=== PATIENT | female | born 1945 | race Caucasian/White ===

== ENCOUNTER 2016-09-03 14:56 | Observation (INO) | payer OTHER ==
[~2016-09-03] VITALS: Ht 160 cm; Wt 68.0 kg
[~2016-09-03 14:56] MED LIST: ASPI81TA82 PO; ATOR20TA PO; CLON.2 PO; DOXA1 PO; FLUO10TA PO; FURO80 PO; GLIM4TAB PO; HYDR12.56 PO; LACTCAP7 PO; LEVO88TA2 PO; METO50TA PO; OCUV PO; SODI650T PO; VITA200017 PO
[2016-09-03 14:57] VITALS: BP 138/65; PULSE 94; RESP 20; TEMP 97.9; O2SAT 97
[2016-09-03 15:52] VITALS: BP 170/74; PULSE 67; RESP 20; O2SAT 93
[2016-09-03] MEDS ORDERED: METO50TA PO (15:57)
[2016-09-03] MEDS ORDERED: NOVORP2 SQ (15:57)
[2016-09-03] MEDS ORDERED: NOVONP2 SQ (15:57)
[2016-09-03] MEDS ORDERED: CLON0.2T PO (15:57)
[2016-09-03] MEDS ORDERED: DOXA4TAB3 PO (15:57)
[2016-09-03] MEDS ORDERED: FURO80TA PO (15:57)
[2016-09-03] MEDS ORDERED: BRIL90TA PO (15:57)
[2016-09-03] MEDS ORDERED: SEVEL800 PO (15:57)
[2016-09-03] MEDS ORDERED: ATOR20TA15 PO (15:57)
[2016-09-03] MEDS ORDERED: LEVO100T5 PO (15:57)
[2016-09-03] MEDS ORDERED: GLIM4TAB PO (15:57)
[2016-09-03] MEDS ORDERED: SODIUM CHLORID 0.9% 500 ML INJ 500 ML IV ONE (16:00)
[2016-09-03] MEDS ORDERED: SODIUM CHLORIDE 0.9% FLUSH 5 ML FLUSH IVF PRN (16:00)
[2016-09-03] MEDS ORDERED: ONDANSETRON HCL 4 MG/2 ML VIAL IVP ONE (16:00)
--- NOTE | 2016-09-03 16:27 | PD ---
HPI Chief Complaint: General Weakness Time Seen by Provider: 16:05 Travel History International Travel<30 days: No Contact w/Intl Traveler<30days: No Traveled to known affect area: No History of Present Illness HPI 71-year-old female with history of insulin-dependent diabetes, end-stage renal disease on peritoneal dialysis presents with nausea and vomiting. Symptoms started 1 week ago. She reports multiple episodes of emesis on a daily basis, generalized weakness, lightheadedness. She reports she has not been checking her blood sugar and has not been taking insulin because she has not been eating much. She does endorse cough and congestion since last week which is improving. She denies fevers or chills, flank pain, dysuria, chest pain or shortness of breath, abdominal pain, diarrhea. She has no other complaints at this time. PFSH Past Medical History Cancer: No Cardiovascular Problems: No Diabetes: Yes Patient Takes Glucophage: No Dialysis: Yes (peritoneal) Diminished Hearing: No Endocrine: Yes Genitourinary: Yes (KIDNEY FAILURE) Hepatitis: No Hiatal Hernia: No Hypertension: Yes Immune Disorder: No Medical other: Yes (ANEMIA) Musculoskeletal: No Neurologic: Yes (NEUROPATHY FEET) Psychiatric: Yes (DEPRESSION (LOST SON LAST MO.)) Reproductive: No Respiratory: No Thyroid Disease: Yes Past Surgical History Abdominal Surgery: No AICD: No Cardiac Surgery: No Coronary Stent: Yes Ear Surgery: No Endocrine Surgery: No Eye Surgery: Yes (IRINA. CATARACT EXTR.) Genitourinary Surgery: No Gynecologic Surgery: No Joint Replacement: No Oral Surgery: Yes (TONSILLECTOMY; DENTAL EXTRACT.) Pacemaker: No Thoracic Surgery: No Social History Alcohol Use: No Tobacco Use: No Substance Use: No Allergies-Medications (Allergen,Severity, Reaction): Coded Allergies: Amlodipine (Verified Allergy, Severe, 09/03/16) ALLERGY Enalapril (Verified Allergy, Severe, 09/03/16) ALLERGY Metformin (Verified Allergy, Severe, 09/03/16) ALLERGY Reported Meds & Prescriptions Reported Meds & Active Scripts Active Reported Furosemide 80 Mg Tab 80 Mg PO BID Metoprolol Tartrate 50 Mg Tab 50 Mg PO BID Levothyroxine (Levothyroxine Sodium) 100 Mcg Tab 100 Mcg PO DAILY Glimepiride 4 Mg Tab 8 Mg PO DAILY Take with breakfast or first main meal Doxazosin (Doxazosin Mesylate) 4 Mg Tab 4 Mg PO DAILY Atorvastatin (Atorvastatin Calcium) 20 Mg Tab 20 Mg PO HS Renvela (Sevelamer Carbonate) 800 Mg Tab 800 Mg PO TID Novolin N Inj (Insulin Human NPH) 1,000 Unit/10 Ml Vial 0 SQ DIRECTED Sliding Scale As Directed. Novolin R Inj (Insulin Human Regular) 1,000 Unit/10 Ml Vial 0 SQ DIRECTED Sliding Scale As Directed. Brilinta (Ticagrelor) 90 Mg Tab 90 Mg PO BID Review of Systems Except as stated in HPI: all other systems reviewed are Neg Physical Exam Narrative GENERAL: Well-developed well-nourished female in no acute distress SKIN: Warm and dry. HEAD: Atraumatic. Normocephalic. EYES: Pupils equal and round. No scleral icterus. No injection or drainage. ENT: No nasal bleeding or discharge. Mucous membranes pink and moist. NECK: Trachea midline. No JVD. CARDIOVASCULAR: Regular rate and rhythm. No murmur appreciated. RESPIRATORY: No accessory muscle use. Clear to auscultation. Breath sounds equal bilaterally. GASTROINTESTINAL: Abdomen soft, non-tender, nondistended. Hepatic and splenic margins not palpable. MUSCULOSKELETAL: No obvious deformities. No clubbing. No cyanosis. No edema. NEUROLOGICAL: Awake and alert. No obvious cranial nerve deficits. Motor grossly within normal limits. Normal speech. Data Data Last Documented VS Vital Signs Date Time Temp Pulse Resp B/P Pulse Ox O2 Delivery O2 Flow Rate FiO2 09/03/16 19:23 19 97 Room Air 09/03/16 19:22 83 150/67 09/03/16 14:57 97.9 Orders Electrocardiogram (09/03/16 ) Complete Blood Count With Diff (09/03/16 15:55) Comprehensive Metabolic Panel (09/03/16 15:55) Urinalysis - C+S If Indicated (09/03/16 15:55) Lipase (09/03/16 15:55) Iv Access Insert/Monitor (09/03/16 15:55) Ecg Monitoring (09/03/16 15:55) Oximetry (09/03/16 15:55) Ondansetron Inj (Zofran Inj) (09/03/16 16:00) Sodium Chloride 0.9% Flush (Ns Flush) (09/03/16 16:00) Beta Hydroxybutyrate (Acetone) (09/03/16 15:55) Chest, Single Ap (09/03/16 ) Magnesium (Mg) (09/03/16 15:55) Sodium Chlorid 0.9% 500 Ml Inj (Ns 500 M (09/03/16 16:00) Us Abdomen Gallbladder (09/03/16 ) Urine Culture (09/03/16 17:49) Piperacil-Tazo 3.375 Gm Premix (Zosyn 3. (09/03/16 19:15) Consult General Surgery (09/03/16 ) Labs Laboratory Tests Test 09/03/16 09/03/16 16:15 17:49 White Blood Count 11.6 TH/MM3 Red Blood Count 4.27 MIL/MM3 Hemoglobin 11.2 GM/DL Hematocrit 34.8 % Mean Corpuscular Volume 81.5 FL Mean Corpuscular Hemoglobin 26.3 PG Mean Corpuscular Hemoglobin 32.3 % Concent Red Cell Distribution Width 16.2 % Platelet Count 205 TH/MM3 Mean Platelet Volume 8.9 FL Neutrophils (%) (Auto) 78.7 % Lymphocytes (%) (Auto) 13.8 % Monocytes (%) (Auto) 7.0 % Eosinophils (%) (Auto) 0.1 % Basophils (%) (Auto) 0.4 % Neutrophils # (Auto) 9.1 TH/MM3 Lymphocytes # (Auto) 1.6 TH/MM3 Monocytes # (Auto) 0.8 TH/MM3 Eosinophils # (Auto) 0.0 TH/MM3 Basophils # (Auto) 0.0 TH/MM3 CBC Comment DIFF FINAL Differential Comment Sodium Level 131 MEQ/L Potassium Level 3.4 MEQ/L Chloride Level 88 MEQ/L Carbon Dioxide Level 28.1 MEQ/L Anion Gap 15 MEQ/L Blood Urea Nitrogen 72 MG/DL Creatinine 6.00 MG/DL Estimat Glomerular Filtration 7 ML/MIN Rate Random Glucose 303 MG/DL Calcium Level 8.6 MG/DL Magnesium Level 2.1 MG/DL Total Bilirubin 0.4 MG/DL Aspartate Amino Transf 11 U/L (AST/SGOT) Alanine Aminotransferase 18 U/L (ALT/SGPT) Alkaline Phosphatase 101 U/L Total Protein 7.6 GM/DL Albumin 3.3 GM/DL Lipase 692 U/L B-Hydroxybutyrate 0.20 MMOL/L Urine Color YELLOW Urine Turbidity CLOUDY Urine pH 5.5 Urine Specific [place] 1.025 Urine Protein 100 mg/dL Urine Glucose (UA) 300 mg/dL Urine Ketones NEG mg/dL Urine Occult Blood SMALL Urine Nitrite NEG Urine Bilirubin NEG Urine Urobilinogen LESS THAN 2.0 MG/DL Urine Leukocyte Esterase LARGE Urine RBC 21 /hpf Urine WBC /hpf Urine WBC Clumps MANY Urine Squamous Epithelial 4 /hpf Cells Urine Bacteria MANY /hpf Microscopic Urinalysis Comment CULTURE INDICATED MDM Medical Decision Making Medical Screen Exam Complete: Yes Emergency Medical Condition: Yes Medical Record Reviewed: Yes Interpretation(s) EKG sinus rhythm with occasional PVCs, QTC 565 CBC WBC 11.6, hemoglobin 11.2 otherwise unremarkable CMP Lipase Differential Diagnosis Gastroenteritis, dehydration, DKA, electrolyte abnormality, sepsis, obstruction , cholecystitis Narrative Course 71-year-old female with history of end-stage renal disease, diabetes presents with one week of nausea and vomiting with multiple episodes of emesis on daily basis. She has not been taking insulin this past week or checking her blood sugar secondary to generalized weakness, decreased appetite. Plan is for basic lab work, chest x-ray, EKG, right upper quadrant ultrasound. Discussed with my attending who is agreeable with plan of care. The patient's laboratory imaging studies been reviewed. She does have cholelithiasis with some pericolic cystic fluid. Her lipase is elevated at 692. Therefore IV Zosyn will be initiated and the case was discussed the case with the on-call general surgeon Dr. Quezada who will come and evaluate the patient. The patient will be admitted for observation to the hospitalist service with consultation to general surgeon. The patient is agreeable. Procedures EKG Prior to Arrival: Yes Diagnosis Primary Impression: Nausea and vomiting Qualified Code: R11.2 - Non-intractable vomiting with nausea, unspecified vomiting type Additional Impressions: Pancreatitis Qualified Code: K85.90 - Acute pancreatitis, unspecified complication status, unspecified pancreatitis type Cholelithiasis Qualified Code: K80.20 - Calculus of gallbladder without cholecystitis without obstruction Prolonged QT interval Admitting Information Admitting Physician Requests: Observation Master Concepcion Sep 03, 2016 16:27
[2016-09-03 16:33] LABS: AUTOMATED NEUTROPHIL # 9.1 TH/MM3 (1.8-7.7); BASOPHIL % 0.4 % (0.0-2.0); EOSINOPHIL % 0.1 % (0.0-4.0); HEMATOCRIT 34.8 % (35.0-46.0); HEMO FLAGS DIFF FINAL; LYMPH % 13.8 % (9.0-44.0); LYMPHOCYTE # 1.6 TH/MM3 (1.0-4.8); MEAN CELL VOLUME 81.5 FL (80.0-100.0); MEAN CORPUSCULAR HEMOGLOBIN 26.3 PG (27.0-34.0); MEAN CORPUSCULAR HGB CONC 32.3 % (32.0-36.0); NEUT % 78.7 % (16.0-70.0); PLATELET COUNT 205 TH/MM3 (150-450); RED BLOOD COUNT 4.27 MIL/MM3 (4.00-5.30); RED CELL DISTRIBUTION WIDTH 16.2 % (11.6-17.2); WHITE BLOOD COUNT 11.6 TH/MM3 (4.0-11.0)
--- NOTE | 2016-09-03 17:12 | RADRPT ---
EXAM DATE/TIME: 09/03/2016 16:06 [facility] COMPARISON: No previous studies available for comparison. INDICATIONS : Cough MEDICAL HISTORY : Hypertension. Diabetes mellitus type II. Renal failure, chronic. Dialysis, Flu symptoms. SURGICAL HISTORY : Coronary artery stent. ENCOUNTER: Initial ACUITY: 2 weeks PAIN SCORE: 0/10 LOCATION: chest FINDINGS: Single AP view of the chest. The lungs are clear. Cardiomediastinal silhouette within normal limits. No evidence of pleural effusion or pneumothorax. CONCLUSION: No acute cardiopulmonary disease identified. Philip Auguste MD on September 03, 2016 at 17:10 Board Certified Radiologist. This report was verified electronically.
[2016-09-03 17:27] LABS: ALT (GPT) 18 U/L (10-53); ANION GAP 15 MEQ/L (5-15); AST (GOT) 11 U/L (15-37); BICARBONATE 28.1 MEQ/L (21.0-32.0); BLOOD UREA NITROGEN 72 MG/DL (7-18); CHLORIDE 88 MEQ/L (98-107); GLOMERULAR FILTRATION RATE 7 ML/MIN (>89); MAGNESIUM 2.1 MG/DL (1.5-2.5); POTASSIUM 3.4 MEQ/L (3.5-5.1); SODIUM (NA) 131 MEQ/L (136-145)
[2016-09-03 17:29] LABS: ALKALINE PHOSPHATASE 101 U/L (45-117); TOTAL BILIRUBIN ADULT 0.4 MG/DL (0.2-1.0)
[2016-09-03 18:00] VITALS: BP 159/66; PULSE 88; RESP 20; O2SAT 96
[2016-09-03 18:29] LABS: BACTERIA, URINE MANY /hpf; BLOOD, URINE SMALL (NEG); COMMENT (UR) CULTURE INDICATED; CULTURE IF INDICATED CULTURE INDICATED; GLUCOSE,URINE 300 mg/dL (NEG); KETONE, URINE NEG (NEG); NITRITE,URINE NEG (NEG); PH, URINE 5.5 (5.0-8.5); SQUAMOUS EPITHELIAL CELL URINE 4 /hpf (0-5); URINE COLOR YELLOW (YELLW/STRAW)
--- NOTE | 2016-09-03 18:30 | RADRPT ---
EXAM DATE/TIME: 09/03/2016 17:21 [facility] COMPARISON: No previous studies available for comparison. INDICATIONS : Nausea and vomiting. MEDICAL HISTORY : Hypertension. Thyroid disease. Bilateral macular degeneration. Neuropathy. Renal failure. Periton eal dialysis. Diabetes. Depression. Anemia. SURGICAL HISTORY : Tonsillectomy. Coronary artery stent. Bilateral cataract removal. ENCOUNTER: Initial ACUITY: 1 week PAIN SCORE: 0/10 LOCATION: Right upper quadrant MEASUREMENTS: LIVER: 16.8 cm length COMMON DUCT: 5 mm RIGHT KIDNEY: 11.0 x 4.7 x 5.2 cm FINDINGS: The liver is slightly echogenic which maybe due to fatty infiltration and or hepatocellular dysfuncti on. The gallbladder demonstrates septations within it with gallstones without gallbladder wall thicke sri, however slight pericholecystic fluid is seen with slight fluid in the perihepatic space. The v isualized head of the pancreas, and right kidney appear grossly intact for technique. CONCLUSION: 1. Cholelithiasis. 2. Slight fluid in the perihepatic and pericholecystic space. 3. The liver is slightly echogenic which maybe due to fatty infiltration and or hepatocellular dysfun hetalion. K. Christopher Vidales MD on September 03, 2016 at 18:26 Board Certified Radiologist. This report was verified electronically.
[2016-09-03] MEDS ORDERED: PIPERACIL-TAZO 3.375 GM PREMIX 50 ML IV ONE (19:15)
[2016-09-03 19:22] VITALS: BP 150/67; PULSE 83; RESP 19; O2SAT 98
--- NOTE | 2016-09-03 19:42 | HHI.HP ---
[facility] No Primary Care Physician Admission Diagnosis acute nausea and vomiting, pancreatitis,cholelithiasis, prolonged QT Diagnoses: (1) Pancreatitis Diagnosis: Principal (2) Cholelithiasis Diagnosis: Principal (3) Hypokalemia Diagnosis: Principal (4) Prolonged QT interval Diagnosis: Principal (5) UTI (urinary tract infection) Diagnosis: Principal (6) ESRD on peritoneal dialysis Diagnosis: Principal (7) DM (diabetes mellitus) Diagnosis: Principal Travel History International Travel<30 Days: No Contact w/Intl Traveler <30 Da: No Traveled to Known Affected Are: No History of Present Illness This is a 71-year-old female with a PMH of HTN, DM and ESRD on PD who presented to the ER w/ nausea, vomiting and decreased PO intake. Per pt and Daughter, symptoms have been ongoing "since Eric" but have gotten progressively worse in the last 1wk. Reports approx 20-30 episodes of non-bloody emesis daily , denies diarrhea, fever or chills. States unable to take medications and stopped using Insulin x3 wks as not eating. Denies association w/ meals. No abdominal pain. On arrival, BP 138/65, HR 94, O2 sat 97% on RA, Afebrile. WBC 11.6. K+ 3.4. Creatinine 6.00. Lipase 692. EKG w/ prolonged QT interval. U/ a w/ UTI. S/p Zofran in ER, nausea/vomiting resolved. Gallbladder US w/ cholelithiasis, slight fluid and perihepatic and pericholecystic space. Dr. Quezada consulted by ER physician, will evaluate in a.m. CXR with no acute findings. S/p Zosyn in ER. Review of Systems Other ROS: 14 point review of systems otherwise negative. Past Family Social History Past Medical History PMH: HTN, DM and ESRD on PD Past Surgical History PAST SURGICAL HISTORY: Bilateral Cataract Surgery, Tonsillectomy, Cardiac Stent Allergies: Coded Allergies: Amlodipine (Verified Allergy, Severe, 09/03/16) ALLERGY Enalapril (Verified Allergy, Severe, 09/03/16) ALLERGY Metformin (Verified Allergy, Severe, 09/03/16) ALLERGY Family History PAST FAMILY HISTORY: Reviewed, positive for DM. Social History PAST SOCIAL HISTORY: Negative for alcohol, tobacco or drugs. Physical Exam Vital Signs Vital Signs Date Time Temp Pulse Resp B/P Pulse Ox O2 Delivery O2 Flow Rate FiO2 09/03/16 19:23 19 97 Room Air 09/03/16 19:22 83 19 150/67 98 Room Air 09/03/16 18:00 88 20 159/66 96 Room Air 09/03/16 15:52 67 20 170/74 93 Room Air 09/03/16 14:57 97.9 94 20 138/65 97 Room Air Physical Exam PE: GENERAL: Pleasant middle-aged white female in no acute distress. Daughter at bedside. HEENT: PERRLA, EOMI. No scleral icterus or conjunctival pallor. No lid lag or facial droop. CARDIOVASCULAR: Regular rate and rhythm. No obvious murmurs to auscultation. No chest tenderness to palpation. RESPIRATORY: No obvious rhonchi or wheezing. Clear to auscultation. Breath sounds equal bilaterally. GASTROINTESTINAL: Abdomen soft, non-tender, nondistended. BS normal. MUSCULOSKELETAL: Extremities without clubbing, cyanosis, or edema. No obvious deformities. NEUROLOGICAL: Awake, alert and oriented x4. No focal neurologic deficits. Moving both upper and lower extremities spontaneously. Laboratory Laboratory Tests Test 09/03/16 09/03/16 16:15 17:49 White Blood Count 11.6 Red Blood Count 4.27 Hemoglobin 11.2 Hematocrit 34.8 Mean Corpuscular Volume 81.5 Mean Corpuscular Hemoglobin 26.3 Mean Corpuscular Hemoglobin 32.3 Concent Red Cell Distribution Width 16.2 Platelet Count 205 Mean Platelet Volume 8.9 Neutrophils (%) (Auto) 78.7 Lymphocytes (%) (Auto) 13.8 Monocytes (%) (Auto) 7.0 Eosinophils (%) (Auto) 0.1 Basophils (%) (Auto) 0.4 Neutrophils # (Auto) 9.1 Lymphocytes # (Auto) 1.6 Monocytes # (Auto) 0.8 Eosinophils # (Auto) 0.0 Basophils # (Auto) 0.0 CBC Comment DIFF FINAL Differential Comment Sodium Level 131 Potassium Level 3.4 Chloride Level 88 Carbon Dioxide Level 28.1 Anion Gap 15 Blood Urea Nitrogen 72 Creatinine 6.00 Estimat Glomerular Filtration 7 Rate Random Glucose 303 Calcium Level 8.6 Magnesium Level 2.1 Total Bilirubin 0.4 Aspartate Amino Transf 11 (AST/SGOT) Alanine Aminotransferase 18 (ALT/SGPT) Alkaline Phosphatase 101 Total Protein 7.6 Albumin 3.3 Lipase 692 B-Hydroxybutyrate 0.20 Urine Color YELLOW Urine Turbidity CLOUDY Urine pH 5.5 Urine Specific [place] 1.025 Urine Protein 100 Urine Glucose (UA) 300 Urine Ketones NEG Urine Occult Blood SMALL Urine Nitrite NEG Urine Bilirubin NEG Urine Urobilinogen LESS THAN 2.0 Urine Leukocyte Esterase LARGE Urine RBC 21 Urine WBC Urine WBC Clumps MANY Urine Squamous Epithelial 4 Cells Urine Bacteria MANY Microscopic Urinalysis Comment CULTURE INDICATED Date/Time Procedure Status Source Growth 09/03/16 17:49 Urine Culture Received Urine Clean Catch Pending Result Diagram: 09/03/16 1615 09/03/16 1615 Assessment and Plan Problem List: (1) Pancreatitis ICD Code: K85.90 Status: Acute (2) Hypokalemia ICD Code: E87.6 Status: Acute (3) Cholelithiasis ICD Code: K80.20 Status: Acute (4) Prolonged QT interval ICD Code: R94.31 Status: Acute (5) UTI (urinary tract infection) ICD Code: N39.0 Status: Acute (6) ESRD on peritoneal dialysis ICD Code: N18.6 Status: Acute (7) DM (diabetes mellitus) ICD Code: E11.9 Status: Acute Assessment and Plan A/P: 1. Pancreatitis: Lipase 692, c/o nausea/vomiting, no abdominal pain. Diet as tolerated, IVF-caution w/ ESRD, repeat Lipase in am. Analgesics/antiemetics as needed. Check Lipid Profile, TSH, Hgb A1c. 2. Cholelithiasis: Gallbladder US w/ cholelithiasis and slight fluid in perihepatic and pericholecystic space, images reviewed by me, concern for possible early cholecystitis. Dr. Quezada consulted by ER physician, will evaluate in am. S/p Zosyn in ER, will continue w/ IV Abx. 3. UTI: U/a w/ UTI, continue w/ IV Abx. Follow up Urine Culture. 4. ESRD on PD: Follows w/ Dr. Prescott as outpatient, will consult to resume PD. 5. Prolonged QT Interval: EKG w/ QTC 565. Hold Metoprolol, replace K+, avoid Zofran. Repeat EKG 6. DM: Sliding scale w/ Accu-Cheks, Check Hgb A1c. 7. DVT Prophylaxis: SCD/Teds. 8. Social work for d/c planning as needed. 9. Case discussed w/ ER physician at length. Alcira Zamorano MD Sep 03, 2016 19:42
[2016-09-03] MEDS ORDERED: BISACODYL 10 MG SUPP PR PRN (19:45)
[2016-09-03] MEDS ORDERED: ONDANSETRON HCL 4 MG/2 ML VIAL IVP PRN (19:45)
[2016-09-03] MEDS ORDERED: PROMETHAZINE INJ 25 MG/ML VIAL IM PRN (19:45)
[2016-09-03] MEDS ORDERED: SODIUM CHLORIDE 0.9% FLUSH 5 ML FLUSH FLUSH PRN (19:45)
[2016-09-03] MEDS ORDERED: GLUCAGON 1 MG/ML VIAL OTHER PRN (19:45)
[2016-09-03] MEDS ORDERED: ACETAMINOPHEN 325 MG TAB PO PRN (19:45)
[2016-09-03] MEDS ORDERED: POTASSIUM CHLORIDE 20 MEQ CONTROLLED RELEASE TAB PO ONE (19:45)
[2016-09-03] MEDS ORDERED: ACETAMINOPHEN/HYDROcodone 325 MG/5 MG TAB PO PRN (19:45)
[2016-09-03] MEDS ORDERED: MORPHINE SULFATE 4 MG/ML INJ IV PRN (19:45)
[2016-09-03] MEDS ORDERED: DEXTROSE 50% IN WATER 50 ML VIAL(D50) IV PUSH PRN (19:45)
[2016-09-03] MEDS ORDERED: METOPROLOL TARTRATE 50 MG TAB PO SCH (21:00)
[2016-09-03 21:41] VITALS: BP 143/64; PULSE 84; RESP 16; TEMP 98.8; O2SAT 94
[2016-09-03] MEDS: SODIUM CHLORIDE 0.9% FLUSH 5 ML FLUSH FLUSH SCH (22:04)
[2016-09-03] MEDS: INSULIN ASPART SUPPLEMENTAL SCALE SQ SCH (22:04)
[2016-09-03] MEDS: FUROSEMIDE 80 MG TAB PO SCH (22:04)
[2016-09-04] VITALS (7 sets, daily range): BP systolic 114–133; BP diastolic 55–63; PULSE 67–85; RESP 16–22; TEMP 96.8–98.7; O2SAT 90–94
[2016-09-04] MEDS: PIPERACIL-TAZO 2.25 GM PREMIX 50 ML IV SCH ×4 (01:48→18:10)
[2016-09-04 05:46] LABS: BASOPHIL % 0.2 % (0.0-2.0); EOSINOPHIL # 0.1 TH/MM3 (0-0.4); EOSINOPHIL % 0.6 % (0.0-4.0); HEMATOCRIT 33.2 % (35.0-46.0); HEMO FLAGS DIFF FINAL; LYMPH % 12.2 % (9.0-44.0); LYMPHOCYTE # 1.5 TH/MM3 (1.0-4.8); MEAN CELL VOLUME 82.4 FL (80.0-100.0); MEAN CORPUSCULAR HEMOGLOBIN 26.3 PG (27.0-34.0); MEAN CORPUSCULAR HGB CONC 31.9 % (32.0-36.0); MONO % 7.4 % (0.0-8.0); NEUT % 79.6 % (16.0-70.0); PLATELET COUNT 152 TH/MM3 (150-450); RED BLOOD COUNT 4.03 MIL/MM3 (4.00-5.30); RED CELL DISTRIBUTION WIDTH 15.7 % (11.6-17.2); WHITE BLOOD COUNT 12.6 TH/MM3 (4.0-11.0)
[2016-09-04 06:09] LABS: ALT (GPT) 16 U/L (10-53); ANION GAP 14 MEQ/L (5-15); AST (GOT) 15 U/L (15-37); BICARBONATE 24.2 MEQ/L (21.0-32.0); BLOOD UREA NITROGEN 72 MG/DL (7-18); CHLORIDE 93 MEQ/L (98-107); GLOMERULAR FILTRATION RATE 7 ML/MIN (>89); POTASSIUM 4.4 MEQ/L (3.5-5.1); SODIUM (NA) 131 MEQ/L (136-145)
[2016-09-04 06:19] LABS: ALKALINE PHOSPHATASE 86 U/L (45-117); HDL CHOLESTEROL 25.9 MG/DL (40.0-60.0); TOTAL BILIRUBIN ADULT 0.6 MG/DL (0.2-1.0)
[2016-09-04] MEDS: LEVOTHYROXINE SODIUM 100 MCG TAB PO SCH (07:21)
[2016-09-04] MEDS: INSULIN ASPART SUPPLEMENTAL SCALE SQ SCH ×4 (07:22→22:03)
[2016-09-04] MEDS: SEVELAMER CARBONATE 800 MG TAB PO SCH ×3 (08:27→17:47)
[2016-09-04] MEDS: FUROSEMIDE 80 MG TAB PO SCH ×2 (08:28→21:51)
[2016-09-04] MEDS: DOXAZOSIN MESYLATE 4 MG TAB PO SCH (08:28)
[2016-09-04] MEDS: SODIUM CHLORIDE 0.9% FLUSH 5 ML FLUSH FLUSH SCH ×2 (08:28→21:51)
--- NOTE | 2016-09-04 09:08 | HHI.PR ---
Subjective Remarks Follow up for intractable nausea and vomiting. Patient states that she isn't present nausea and vomiting 1 week. Denies ever having any abdominal pain. Normal bowel movements. She states that she had some broth yesterday, which was the person she is tolerated in a week. She states she was told she had gallstones before. No history of pancreatitis. She would like to try to eat something more than broth today. Objective Vitals Vital Signs Date Time Temp Pulse Resp B/P Pulse Ox O2 Delivery O2 Flow Rate FiO2 09/04/16 08:09 98.4 84 20 127/60 90 09/04/16 04:10 98.4 67 16 133/60 94 09/04/16 00:05 98.7 85 20 133/63 91 09/03/16 21:41 98.8 84 16 143/64 94 09/03/16 19:23 19 97 Room Air 09/03/16 19:22 83 19 150/67 98 Room Air 09/03/16 18:00 88 20 159/66 96 Room Air 09/03/16 15:52 67 20 170/74 93 Room Air 09/03/16 14:57 97.9 94 20 138/65 97 Room Air I/O 09/03/16 09/03/16 09/03/16 09/04/16 09/04/16 09/04/16 07:00 15:00 23:00 07:00 15:00 23:00 Intake Total 80 ml Output Total 1 ml 250 ml Balance 79 ml -250 ml Intake Oral 80 ml Output Urine Total 1 ml 250 ml # Voids 1 1 Result Diagram: 09/04/16 0503 09/04/16 0503 Imaging Last Impressions Gall Bladder Ultrasound 09/03/16 0000 Signed Impressions: Service Date/Time: Saturday, September 03, 2016 17:21 - CONCLUSION: 1. Cholelithiasis. 2. Slight fluid in the perihepatic and pericholecystic space. 3. The liver is slightly echogenic which maybe due to fatty infiltration and or hepatocellular dysfunction. Felicia Vidales MD Chest X-Ray 09/03/16 0000 Signed Impressions: Service Date/Time: Saturday, September 03, 2016 16:06 - CONCLUSION: No acute cardiopulmonary disease identified. Philip Auguste MD Objective Remarks GENERAL: Well-developed well-nourished. In no acute distress. SKIN: Warm and dry. No lesions noted. HEENT: Normocephalic. Pupils equal and round. Mucous membranes pink and moist. CARDIOVASCULAR: Regular rate and rhythm. No murmur appreciated. RESPIRATORY: No accessory muscle use. Clear to auscultation. Breath sounds equal bilaterally. GASTROINTESTINAL: Abdomen soft, non-tender, nondistended. Bowel sounds x4. PD catheter in place in RUQ. MUSCULOSKELETAL: No obvious deformities. No clubbing or cyanosis. Trace edema. NEUROLOGICAL: Awake and alert. No focal neurological deficits. Moves upper and lower extremities spontaneously. Normal speech. PSYCHIATRIC: Appropriate mood and affect; insight and judgment normal. A/P Problem List: (1) Pancreatitis ICD Code: K85.90 Status: Acute (2) Hypokalemia ICD Code: E87.6 Status: Acute (3) Cholelithiasis ICD Code: K80.20 Status: Acute (4) Prolonged QT interval ICD Code: R94.31 Status: Acute (5) UTI (urinary tract infection) ICD Code: N39.0 Status: Acute (6) ESRD on peritoneal dialysis ICD Code: N18.6 Status: Acute (7) DM (diabetes mellitus) ICD Code: E11.9 Status: Acute Assessment and Plan 71-year-old female with a PMH of HTN, DM and ESRD on PD who presented w/ nausea , vomiting and decreased PO intake Pancreatitis: Lipase 692, c/o nausea/vomiting, no abdominal pain. Possibly secondary to retching versus gallstones, see below. Advance diet as tolerated, full liquids for now. Cautious IV hydration. Repeat lipase improving. Triglycerides 476. Analgesics/antiemetics as needed. Cholelithiasis: Gallbladder US w/ cholelithiasis and slight fluid in perihepatic and pericholecystic space. General surgery consulted, discussed with Dr. Quezada, will check MRCP. Continue IV Zosyn for now. UTI: U/a w/ evidence of UTI. Could definitely contribute to nausea and vomiting. Continue IV Zosyn as above. Follow up Urine Culture. ESRD on PD: Follows w/ Dr. Prescott as outpatient, consulted to resume PD. Prolonged QT Interval: EKG w/ QTC 565. Hold Metoprolol, replaced K+, avoid Zofran. Repeat EKG DM: Not well controlled with nausea and vomiting. Sliding scale w/ Accu-Cheks. Hemoglobin A1c pending. Resume home long-acting insulin when after tolerating diet. CAD: Brilinta on hold for now pending possible gallbladder intervention with general surgery. Continue statin and metoprolol. Hypothyroidism: TSH slightly elevated at 4.25. Free T4 within normal limits. Continue home levothyroxine. Repeat thyroid function tests in 4-6 weeks as outpatient. DVT Prophylaxis: SCD/Teds. Plan of care discussed with Dr. Jackson. Discharge Planning Disposition pending clinical course. Alexis Benítez Sep 04, 2016 09:08
[2016-09-04] MEDS ORDERED: SODIUM CHLORID 0.9% 500 ML INJ 500 ML IV SCH (10:00)
[2016-09-04 10:05] LABS: FREE T4 1.24 NG/DL (0.76-1.46)
[2016-09-04] MEDS ORDERED: HEPARIN SODIUM - IV 10,000 UNITS/10 ML VIAL XX PRN (10:15)
[2016-09-04] MEDS ORDERED: SODIUM CHLORIDE 0.9% FLUSH 5 ML FLUSH IVF PRN (10:15)
[2016-09-04] MEDS ORDERED: SINCALIDE 5 MCG/5 ML VIAL IV ONE (15:03)
--- NOTE | 2016-09-04 17:27 | RADRPT ---
EXAM DATE/TIME: 09/04/2016 13:38 [facility] COMPARISON: No previous studies available for comparison. INDICATIONS : Abdominal pain with nausea and vomiting. Pancreatitis and cholelithiasis. DOSE: 4.3 mCi Tc99m Mebrofenin IV MEDICATION: 1.3 mcg Cholecystokinin IV; No symptomatic response. Cholecystokinin was administered by slow infusion over 8 minutes beginning at 60 minutes. MEDICAL HISTORY : Hypertension. Diabetes mellitus type 2. Renal disease, end stage. SURGICAL HISTORY : Tonsillectomy. Coronary artery stent. Cataracts. ENCOUNTER: Initial ACUITY: 1 day PAIN SCALE: 3/10 LOCATION: Right upper quadrant TECHNIQUE: Following the intravenous administration of radiotracer, dynamic sequential image were performed with continuous acquisition. Time-activity curves were generated. FINDINGS: HEPATIIC KINETICS: There is prompt uptake of radiotracer in the liver. No focal defects are seen. There is normal rate of washout from the hepatic parenchyma. BILIARY CLEARANCE: Activity is first seen in the extrahepatic biliary system at 15 minutes. There is normal excretion i nto the small bowel. GALLBLADDER: Activity is first seen in the gallbladder at 10 minutes. POST CHOLECYSTOKININ: After Cholecystokinin administration, there is no significant gallbladder contractile response. Commo n bile duct kinetics are normal and there is no evidence of biliary obstruction. BILIARY ENTERIC REFLUX: None observed. CLINICAL: The patient was asymptomatic after Cholecystokinin administration. CONCLUSION: 1. No evidence for biliary ductal obstruction. Normal uptake and excretion by the liver. No gallbladd er contractile response to CCK which may indicate biliary dyskinesia. Rolan Mcmanus MD on September 04, 2016 at 17:24 Board Certified Radiologist. This report was verified electronically.
[2016-09-04 18:24] LABS: PERITONEAL HISTIOCYTES 26 %; PERITONEAL LYMPHS 19 %; PERITONEAL MONOS 30 %; PERITONEAL POLYS(SEGS) 25 %; PERITONEAL WBC 405 /MM3 (0-10)
--- NOTE | 2016-09-04 20:42 | MB ---
cc: JANETH THOMAS MD DATE OF CONSULTATION: 09/04/2016 REASON FOR CONSULTATION: Rule out cholecystitis. HISTORY OF PRESENT ILLNESS: The patient is a 71-year-old female with multiple medical issues who presented with multiple episodes of nausea, vomiting and decreased p.o. intake. The patient states she has had a long bout of this, approximately since it started. She had multiple episodes, about twenty to thirty episodes, of nonbloody vomit and states it was self-limiting. She had recurrent episodes starting around Tuesday and it continued to get worse with multiple repeat episodes of nausea, vomiting and poor p.o. intake. Therefore decision was made to come to the emergency department for further workup and evaluation. She had labs with a WBC of 1.6. She is at end-stage renal disease with a creatinine 6 and lipase of 692. She had a further workup including a gallbladder ultrasound which showed of gallstones and some fluid around the gallbladder as well. General surgery was consulted for further evaluation. On my exam, the patient is resting, comfortably. Her abdomen is relatively benign. She denies any such abdominal pain or pain with eating or significant pain on palpation. She does have a peritoneal dialysis catheter in place. She further denies diarrhea, constipation, fevers or chills. PAST MEDICAL HISTORY: 1. Hypertension. 2. Diabetes. 3. End-stage renal disease. 4. Peritoneal dialysis catheter. PAST SURGICAL HISTORY: 1. Bilateral cataract surgery. 2. Tonsillectomy. 3. Cardiac stents. 4. PD catheter. ALLERGIES: 1. AMLODIPINE. 2. ENALAPRIL. 3. METFORMIN. MEDICATIONS: See the electronic medical record. FAMILY HISTORY: Positive for diabetes in mother. SOCIAL HISTORY: The patient denies ethyl alcohol, IV drug abuse or smoking. REVIEW OF SYSTEMS: CONSTITUTIONAL: The patient denies fevers or chills. HEAD, EYES, EARS, NOSE, THROAT: Denies scleral icterus or eye pain. CARDIOVASCULAR: Denies palpitations or chest pain. RESPIRATORY: Denies wheeze or cough. ABDOMEN: Denies pain. Complains of nausea and vomiting. MUSCULOSKELETAL: Denies arthralgias, myalgias. NEUROLOGIC: Denies numbness or tingling. : Denies dysuria or hematuria. ENDOCRINE: Complains of diabetes. Denies polyuria or polydipsia. PHYSICAL EXAMINATION: GENERAL: The patient IN no acute distress. VITAL SIGNS: Temperature 98.4, pulse 67, blood pressure 133/60, respirations 16, 94% on room air. HEAD, EYES, EARS, NOSE, THROAT: Pupils equal, round and reactive to light and accommodation. Pupils equal and reactive. No scleral icterus. NECK: The neck is supple. No adenopathy. LUNGS: Clear to auscultation bilaterally. Bilateral expansion. HEART: S1-S2 regular rhythm. ABDOMEN: The abdomen is soft, nontender and nondistended. PD catheter in place. Well-healed incisions. EXTREMITIES: Moving all extremities. Warm. Well-perfused. NEUROLOGIC: 5/5 motor strength. A GCS of 15. Alert and oriented times four. PSYCHIATRIC: Good mood. No change in sensorium. LABORATORY AND DIAGNOSTIC DATA: WBCs 12.6, hemoglobin 10.6, hematocrit 33.2, platelet count 152,000. Sodium 131, potassium 4.4, BUN 72, creatinine 7. Hemoglobin A1c pending. Glucose 138, previously 3. AST 15, ALT 16, alkaline phosphatase 86, albumin 2.6, lipase is 692. T4 124. Ultrasound reviewed by myself showing gallbladder with gallbladder stones and pericystic fluid. ASSESSMENT: Patient with multiple medical issues including end-stage renal disease, PD catheter, diabetes, pancreatitis, cholelithiasis, low evidence of cholecystitis. ASSESSMENT AND PLAN: After full radiologic, clinical and laboratory workup, the patient with above-named issue including nausea, vomiting, multiple episodes for a prolonged period time. Also the patient has gallstones. At this point, I have a low suspicion of gallbladder pathology or dysfunction. The patient does have cholelithiasis but is having no pain on palpation or any pain associated with food. The patient does have significant decreased p.o. intake and multiple episodes of nausea and vomiting. Concern more likely related to comorbidities such as diabetes, possible gastroparesis. Recommend further workup including upper GI or a feeding study. The patient have elements of pancreatitis contributing to the nausea and vomiting. Continue to give the patient IV fluids, bowel rest initially and trend pancreatic labs. The patient did have hyperglycemia upon admission. Recommend Accu-Cheks and insulin scale. Medicine to manage. We will obtain a HIDA scan to evaluate the gallbladder and its function. Again, low threshold for any gallbladder pathology or need for surgical intervention at this time. We will continue to follow and observe and follow up on radiologic studies. MD MAXINE Benson/TAURUS /7:56 PM /8:28 PM
--- NOTE | 2016-09-04 21:02 | MB ---
cc: YASMIN TREVIZO MD DATE OF CONSULTATION 09/04/16 REASON FOR CONSULTATION End-stage renal disease management. HISTORY OF PRESENT ILLNESS A 71-year-old female with a history of ESRD on peritoneal dialysis. The patient has been on PD for approximately two years. She follows up with Dr. Truman Trevizo and with Dr. Duarte as an outpatient. The patient presented to the emergency room on September 03 with presentation of decreased p.o. intake with nausea and vomiting. Apparently, patient has had decreased by mouth intake for several months which had progressively gotten worse over a week prior to admission with multiple episodes of emesis daily. The patient reported that she was unable to take her medications and then stop taking her insulin for several weeks. She started feeling more apathetic about her overall medical state. She apparently had an A1c of 11 as an outpatient prior to her admission here. When the patient presented here, she was found to have a prolonged QT interval on her EKG and her potassium was 3.4. Her potassium was replaced and this did improve. She also was found to have an elevated lipase level at 692 and was assessed with pancreatitis. The patient was initially n.p.o. and was given IV fluids with her initial presentation. A gallbladder ultrasound revealed signs of cholelithiasis and surgery was consulted. A HIDA scan initially was relatively negative otherwise and there is possible plans for a MRCP evaluation. The patient was empirically started on antibiotics with Zosyn. Her urinalysis also revealed signs of a UTI and she has also been continued with Zosyn for that. Overnight, her repeat lipase levels were somewhat improved and diet was then increased to full liquid diet. The patient at this point reports she is not feeling much better since her admission. She has some ongoing generalized weakness. However, no other acute complaints. Regarding her peritoneal dialysis, apparently her peritoneal dialysis has been uneventful and has been going well at home. She has had some mild ulcerations and crusting near her exit site which she reports has been stable for several weeks now. Her PD fluid has been clear and she has had no abdominal pains otherwise. Nephrology was consulted for further evaluation. REVIEW OF SYSTEMS The patient reports nausea and vomiting with decreased p.o. intake for several weeks. No diarrhea. No dysuria. No chest pains. No shortness of breath. However, has had generalized malaise. No dizziness or loss of consciousness. However, has had decreased p.o. intake. Otherwise, review of systems negative. PAST MEDICAL HISTORY 1. Hypertension, 2. Diabetes 3. ESRD on peritoneal dialysis followed up with Dr. Duarte and with Dr. Truman Trevizo. PAST SURGICAL HISTORY 1. Bilateral cataract surgery, 2. Tonsillectomy 3. Cardiac stents. ALLERGIES AMLODIPINE ENALAPRIL METFORMIN FAMILY HISTORY Diabetes. SOCIAL HISTORY No alcohol, tobacco or drug use. VITAL SIGNS: At time of evaluation temperature 98.1, pulse 79, respiratory rate 22, blood pressure 114/55 with 93% pulse ox PHYSICAL EXAMINATION GENERAL: Awake, alert, oriented, no apparent distress. HEENT: Neck soft supple. CARDIAC: Regular rate and rhythm. PULMONARY: Lungs clear auscultation bilaterally. ABDOMEN: Soft, nondistended, nontender. EXTREMITIES: No edema. LABORATORY FINDINGS White count 12.6, hemoglobin 10.6, hematocrit 33.2 with platelet count 152. Sodium 131, potassium 4.4, chloride 93, bicarb 24.2, BUN 72, creatinine 6.08 with glucose of 138, A1c level is pending. However, reportedly outpatient A1c was 11, AST 15, ALT 16, alk phos 86, albumin 2.6. Triglycerides 476, lipase trending down from 692 down to 500. ASSESSMENT/PLAN 1. ESRD on PD. Patient has been continued on peritoneal dialysis tonight and she is tolerating PD well this evening. We will continue with 2.5% Dianeal solution and continue to monitor. PD fluid culture was ordered and she does have an elevated white cell count in her PD fluid of 400, howeever, only 25% neutrophils were noted. She is tolerating the PD without any pain and her fluid is clear at this point. We will check PD fluid culture, however, no suspicion for any peritonitis at this point. Of note, she does have some increased crusting and early ulceration near the exit site of her catheter. She is on IV antibiotics with Zosyn and this should cover any possible pathogens here. In addition, we will give topical antibiotic ointment to this site to be given with nursing care. This does not appear to be a tunnel infection, otherwise, however just some mild crusting at the exit site. We will continue to closely monitor. The patient is afebrile at this point and continue to follow up PD fluid cultures. 2. Pancreatitis. The patient presented with decreased p.o. intake and elevated lipase levels. Lipase level has somewhat trended down from 692 down to 500. She has a decreased p.o. intake and fluids were stopped today and she was started on p.o. intake with a clear liquid diet. She is empirically being covered with Zosyn at this point. Initial gallbladder ultrasound revealed signs of possible cholelithiasis, however, HIDA scan was negative. Plan is for an MRCP to further evaluate for any gallstone pancreatitis. Continue follow up with surgery. Of note, should abdominal surgery be necessary, the patient may need transition to hemodialysis. However, continue conservative management and for now and continue with PD as tolerated at this point. 3. Prolonged QT interval. The patient presented with a prolonged QT interval. Her beta mray was held and she was given potassium. Her potassium improved from 3.4-4.4 now. Continue to monitor. Her magnesium levels were within normal limits. Much of this may be secondary to malnutrition with decreased p.o. intake. Continue to monitor. 4. Urinary tract infection. The patient had a urine culture suggestive of gram-negative rods. She is on Zosyn at this point. Continue to monitor and follow speciation of urine culture. She is afebrile at this point. 5. Diabetes. The patient reportedly had been noncompliant with her insulin. She apparently has an A1c of 11 as an outpatient. Repeat testing is being done at this point. Continue with insulin sliding scale. Her glucose was 138 this morning. However, it was 303 yesterday. MD JANNETH Calle/ /8:04 PM /8:34 PM СЕРГЕЙ
[2016-09-04] MEDS: ATORVASTATIN 20 MG TAB PO SCH (21:52)
[2016-09-04] MEDS: MUPIROCIN 2% CREAM 15 GM TOPICAL SCH (22:54)
[2016-09-05] MEDS: PIPERACIL-TAZO 2.25 GM PREMIX 50 ML IV SCH ×4 (02:05→21:32)
[2016-09-05 05:14] LABS: AUTOMATED NEUTROPHIL # 6.2 TH/MM3 (1.8-7.7); BASOPHIL % 0.5 % (0.0-2.0); EOSINOPHIL # 0.2 TH/MM3 (0-0.4); EOSINOPHIL % 2.2 % (0.0-4.0); HEMATOCRIT 28.7 % (35.0-46.0); HEMO FLAGS DIFF FINAL; LYMPH % 16.3 % (9.0-44.0); LYMPHOCYTE # 1.4 TH/MM3 (1.0-4.8); MEAN CELL VOLUME 80.8 FL (80.0-100.0); MEAN CORPUSCULAR HGB CONC 33.4 % (32.0-36.0); MONO % 7.1 % (0.0-8.0); NEUT % 73.9 % (16.0-70.0); PLATELET COUNT 122 TH/MM3 (150-450); RED BLOOD COUNT 3.55 MIL/MM3 (4.00-5.30); RED CELL DISTRIBUTION WIDTH 15.7 % (11.6-17.2); WHITE BLOOD COUNT 8.3 TH/MM3 (4.0-11.0)
[2016-09-05] MEDS: LEVOTHYROXINE SODIUM 100 MCG TAB PO SCH (05:43)
[2016-09-05 06:25] VITALS: BP 124/60; PULSE 77; RESP 18; TEMP 97.3; O2SAT 92
[2016-09-05] MEDS: INSULIN ASPART SUPPLEMENTAL SCALE SQ SCH ×4 (06:29→21:33)
--- NOTE | 2016-09-05 07:30 | HHI.PR ---
Subjective Subjective Notes no acute issues, denies pain, no vomiting overnight, patent gallbladder on hida Objective Vitals/I&O Vital Signs Date Time Temp Pulse Resp B/P Pulse Ox O2 Delivery O2 Flow Rate FiO2 09/05/16 06:25 97.3 77 18 124/60 92 09/03/16 19:23 Room Air Labs Laboratory Tests Test 09/04/16 09/05/16 17:35 04:40 Peritoneal Fluid WBC 405 Peritoneal Fluid RBC 58 Peritoneal Fluid Neutrophils 25 Peritoneal Fluid Lymphocytes 19 Peritoneal Fluid Monocytes 30 Peritoneal Fluid Histiocytes 26 White Blood Count 8.3 Red Blood Count 3.55 Hemoglobin 9.6 Hematocrit 28.7 Mean Corpuscular Volume 80.8 Mean Corpuscular Hemoglobin 27.0 Mean Corpuscular Hemoglobin 33.4 Concent Red Cell Distribution Width 15.7 Platelet Count 122 Mean Platelet Volume 8.8 Neutrophils (%) (Auto) 73.9 Lymphocytes (%) (Auto) 16.3 Monocytes (%) (Auto) 7.1 Eosinophils (%) (Auto) 2.2 Basophils (%) (Auto) 0.5 Neutrophils # (Auto) 6.2 Lymphocytes # (Auto) 1.4 Monocytes # (Auto) 0.6 Eosinophils # (Auto) 0.2 Basophils # (Auto) 0.0 CBC Comment DIFF FINAL Differential Comment Date/Time Procedure Status Source Growth 09/04/16 17:35 Gram Stain Received Fluid Peritoneal Fluid Pending 09/04/16 17:35 Body Fluid Culture Received Fluid Peritoneal Fluid Pending 09/03/16 17:49 Urine Culture - Preliminary Resulted Urine Clean Catch Gram Negative Denys Cardiovascular: Regular Lungs: Clear Abdomen: Non-distended, Non-tender A/P Assessment and Plan multiple medical issues, nausea vomiting, pancreatitis, +UTI - better currently , labs pending, HIDA patent gallbladder -no clinical evidence of biliary dyskinesia, or acute cholelithiasis PLAN Ok for diet abx for uti trend lipase medical mgnt per primary team non operative management at this time will follow Alexsander Thorpe MD Sep 05, 2016 07:30
[2016-09-05 08:37] VITALS: BP 127/59; PULSE 83; RESP 20; TEMP 98; O2SAT 92
[2016-09-05] MEDS: FUROSEMIDE 80 MG TAB PO SCH ×2 (09:32→21:32)
[2016-09-05] MEDS: DOXAZOSIN MESYLATE 4 MG TAB PO SCH (09:32)
[2016-09-05] MEDS: SODIUM CHLORIDE 0.9% FLUSH 5 ML FLUSH FLUSH SCH ×2 (09:32→21:00)
[2016-09-05] MEDS: SEVELAMER CARBONATE 800 MG TAB PO SCH ×4 (09:32→18:46)
[2016-09-05] MEDS: MUPIROCIN 2% CREAM 15 GM TOPICAL SCH ×2 (09:32→21:32)
[2016-09-05 09:37] LABS: HEMOGLOBIN A1a 1.5 %; HEMOGLOBIN A1b 3.8 %; HEMOGLOBIN Ao 74.9 %; HEMOGLOBIN LA1C 2.4 %; HEMOGLOBIN P3 7.7 %
--- NOTE | 2016-09-05 11:50 | HHI.PR ---
Subjective Remarks Follow-up for intractable nausea and vomiting. The patient tolerated full liquids yesterday, with no further nausea and vomiting overnight, but did have one episode of vomiting and diarrhea this morning. She denies any chest pain, shortness breath, abdominal pain. Objective Vitals Vital Signs Date Time Temp Pulse Resp B/P Pulse Ox O2 Delivery O2 Flow Rate FiO2 09/05/16 08:37 98.0 83 20 127/59 92 09/05/16 06:25 97.3 77 18 124/60 92 09/04/16 23:15 97.1 83 20 122/60 93 09/04/16 20:47 96.8 85 18 131/62 93 09/04/16 15:39 98.1 79 22 114/55 93 09/04/16 12:32 97.6 80 22 125/58 94 I/O 09/04/16 09/04/16 09/04/16 09/05/16 09/05/16 09/05/16 07:00 15:00 23:00 07:00 15:00 23:00 Intake Total 80 ml Output Total 1 ml 250 ml 922 ml Balance 79 ml -250 ml -922 ml Intake Oral 80 ml Output Urine Total 1 ml 250 ml Peritoneal Fluid 922 ml # Voids 1 Result Diagram: 09/05/16 0440 09/04/16 0503 Imaging Last Impressions Hepatobiliary Scan Nuclear Medicine 09/04/16 0000 Signed Impressions: Service Date/Time: Sunday, September 04, 2016 13:38 - CONCLUSION: 1. No evidence for biliary ductal obstruction. Normal uptake and excretion by the liver. No gallbladder contractile response to CCK which may indicate biliary dyskinesia. Rolan Mcmanus MD Gall Bladder Ultrasound 09/03/16 0000 Signed Impressions: Service Date/Time: Saturday, September 03, 2016 17:21 - CONCLUSION: 1. Cholelithiasis. 2. Slight fluid in the perihepatic and pericholecystic space. 3. The liver is slightly echogenic which maybe due to fatty infiltration and or hepatocellular dysfunction. Felicia Vidales MD Chest X-Ray 09/03/16 0000 Signed Impressions: Service Date/Time: Saturday, September 03, 2016 16:06 - CONCLUSION: No acute cardiopulmonary disease identified. Philip Auguste MD Objective Remarks GENERAL: Well-developed well-nourished. In no acute distress. SKIN: Warm and dry. No lesions noted. HEENT: Normocephalic. Pupils equal and round. Mucous membranes pink and moist. CARDIOVASCULAR: Regular rate and rhythm. No murmur appreciated. RESPIRATORY: No accessory muscle use. Clear to auscultation. Breath sounds equal bilaterally. GASTROINTESTINAL: Abdomen soft, non-tender, nondistended. Bowel sounds x4. PD catheter in place in RUQ. MUSCULOSKELETAL: No obvious deformities. No clubbing or cyanosis. Trace edema. NEUROLOGICAL: Awake and alert. No focal neurological deficits. Moves upper and lower extremities spontaneously. Normal speech. PSYCHIATRIC: Appropriate mood and affect; insight and judgment normal. A/P Problem List: (1) Pancreatitis ICD Code: K85.90 Status: Acute (2) Hypokalemia ICD Code: E87.6 Status: Acute (3) Cholelithiasis ICD Code: K80.20 Status: Acute (4) Prolonged QT interval ICD Code: R94.31 Status: Acute (5) UTI (urinary tract infection) ICD Code: N39.0 Status: Acute (6) ESRD on peritoneal dialysis ICD Code: N18.6 Status: Acute (7) DM (diabetes mellitus) ICD Code: E11.9 Status: Acute Assessment and Plan 71-year-old female with a PMH of HTN, DM and ESRD on PD who presented w/ nausea , vomiting and decreased PO intake Intractable nausea and vomiting: Possibly secondary to pancreatitis vs cholelithiasis vs UTI vs peritonitis. Leukocytosis has improved. Afebrile. Peritoneal fluid with elevated WBC, although doubt peritonitis, follow-up culture. Treating UTI. Antiemetics as needed. Advance diet as tolerated. Pancreatitis: Lipase 692, c/o nausea/vomiting, no abdominal pain. Possibly secondary to retching. Cautious IV hydration. Repeat lipase improving. Triglycerides 476. Cholelithiasis: Gallbladder US w/ cholelithiasis and slight fluid in perihepatic and pericholecystic space. General surgery consulted, ordered a HIDA scan which was unremarkable, discussed with Dr. Quezada, no plans for surgery. Continue IV Zosyn for now. UTI: U/a w/ evidence of UTI. Could definitely contribute to nausea and vomiting. Continue IV Zosyn as above. Follow up Urine Culture. ESRD on PD: Follows w/ Dr. Prescott as outpatient, consulted to resume PD. Prolonged QT Interval: EKG w/ QTC 565. Hold Metoprolol, replaced K+, avoid Zofran. Repeat EKG shows QTC within normal limits. DM: Uncontrolled. Sliding scale w/ Accu-Cheks. Hemoglobin A1c 11. Resume home long-acting insulin when tolerating diet. CAD: Brilinta was on hold for possible procedure, we'll resume. Continue statin and metoprolol. Hypothyroidism: TSH slightly elevated at 4.25. Free T4 within normal limits. Continue home levothyroxine. Repeat thyroid function tests in 4-6 weeks as outpatient. DVT Prophylaxis: SCD/Teds. Written by Alexis Benítez, acting as scribe for Dr. Jackson on 09/05/16 at 11:42. Discharge Planning Disposition pending clinical course. Attending Statement The documentation accurately reflects the work performed [id number] by me on at 11:42. Problem Qualifiers (1) Pancreatitis: (2) UTI (urinary tract infection): Qualified Code: N39.0 - Urinary tract infection without hematuria, site unspecified (3) DM (diabetes mellitus): Alexis Benítez Sep 05, 2016 11:50 Romero Kelley MD Sep 12, 2016 09:00
[2016-09-05 12:01] VITALS: BP 141/64; PULSE 84; RESP 20; TEMP 98.2; O2SAT 92
--- NOTE | 2016-09-05 13:07 | EKG ---
Date Performed: 09/03/2016 Time Performed: 15:59:14 PTAGE: 71 years EKG: Sinus rhythm WITH FREQUENT VENTRICULAR PREMATURE COMPLEXES PATTERN CONSISTENT WITH PULMONARY DISEASE LEFT ANTERIO R FASCICULAR BLOCK MINIMAL VOLTAGE CRITERIA FOR LVH, CONSIDER NORMAL VARIANT MODERATE ST DEPRESSION P ROLONGED QT INTERVAL Since previous tracing, no significant change noted ABNORMAL ECG PREVIOUS TRACING : 12/03/2014 08.54 DOCTOR: Hanh Rollins Interpretating Date/Time 09/05/2016 13:06:18
--- NOTE | 2016-09-05 13:08 | EKG ---
Date Performed: 09/04/2016 Time Performed: 15:45:26 PTAGE: 71 years EKG: Sinus rhythm LEFT ANTERIOR FASCICULAR BLOCK POSSIBLE ANTERIOR MYOCARDIAL INFARCTION Since previous tracing, no si gnificant change noted ABNORMAL ECG PREVIOUS TRACING : 09/03/2016 15.59 DOCTOR: Hanh Rollins Interpretating Date/Time 09/05/2016 13:06:37
[2016-09-05 13:20] LABS: BICARBONATE 26.9 MEQ/L (21.0-32.0); POTASSIUM 3.3 MEQ/L (3.5-5.1)
[2016-09-05 13:33] LABS: CALCIUM-PROTEIN CORRECTED 7.6 MG/DL (8.5-10.1)
[2016-09-05 16:03] VITALS: BP 142/64; PULSE 81; RESP 20; TEMP 98.6; O2SAT 91
--- NOTE | 2016-09-05 16:18 | HHI.NPPN ---
Subjective Additional Remarks Ongoing nausea today Objective Data Data 09/04/16 09/05/16 19:00 07:00 Output Total 250 ml Balance -250 ml Output Urine Total 250 ml # Voids 1 Vital Signs Date Time Temp Pulse Resp B/P Pulse Ox O2 Delivery O2 Flow Rate FiO2 09/05/16 16:03 98.6 81 20 142/64 91 09/05/16 12:01 98.2 84 20 141/64 92 09/05/16 08:37 98.0 83 20 127/59 92 09/05/16 06:25 97.3 77 18 124/60 92 09/04/16 23:15 97.1 83 20 122/60 93 09/04/16 20:47 96.8 85 18 131/62 93 -: 09/05/16 0440 09/05/16 1208 Microbiology 09/04/16 Gram Stain - Final, Resulted 09/04/16 Body Fluid Culture - Preliminary, Resulted NO GROWTH IN 24 HOURS. 09/04/16 Gram Stain, Ordered Pending 09/04/16 Wound Culture, Ordered Pending Physical Exam General Appearance: Well Developed, Well Nourished, No Acute Distress Throat Throat Exam: Oral Mucosa [place] & Moist Neck Neck Exam: Neck Supple Pulmonary Resp Exam: Clear Bilaterally Cardiology CV Exam: Regular, Normal Sinus Rhythm Gastrointestinal/Abdomen GI Exam: Soft, Non-Tender, Bowel Sounds Present Integumentary Skin Exam: Dry, Intact Extremeties Extremities Exam: No Edema Neurologic Neuro Exam: Alert, Awake, Oriented, Speech Clear, Moving All Extremities Assessment/Plan Problem List: (1) ESRD on peritoneal dialysis Plan: Tolerated PD last night- continue with 2.5% Dianeal solution and continue to monitor. 922cc UF Negative PD fluid gram stain, no signs of peritonitis. She does have some increased crusting and early ulceration near the exit site of her catheter. She is on IV Zosyn and this should cover any possible pathogens here. Continue topical antibiotic ointment to this site. Continue PD (2) Pancreatitis Plan: The patient presented with decreased p.o. intake and elevated lipase levels. Lipase level has somewhat trended down from 692 down to 500. Tolerating some PO liquid diet at this time. She is empirically being covered with Zosyn at this point. Initial gallbladder ultrasound revealed signs of possible cholelithiasis, however, HIDA scan was negative. Continue follow up with surgery - no surgical intervention planned at this time. (3) DM (diabetes mellitus) Plan: The patient reportedly had been noncompliant with her insulin, with an A1c of 11. Continue insulin sliding scale, encouraged medical compliance. (4) Prolonged QT interval Plan: Initial prolonged QT. Will further replace potassium, follow up labs. (5) UTI (urinary tract infection) Plan: on Zosyn Problem Qualifiers (1) Pancreatitis: (2) DM (diabetes mellitus): (3) UTI (urinary tract infection): Qualified Code: N39.0 - Urinary tract infection without hematuria, site unspecified Pineda Prescott MD Sep 05, 2016 16:18
[2016-09-05] MEDS: POTASSIUM CHLOR 20 MEQ PREMIX 100 ML IV SCH ×2 (17:06→18:37)
[2016-09-05 20:58] VITALS: BP 155/75; PULSE 84; RESP 20; TEMP 97.4; O2SAT 93
[2016-09-05] MEDS: ATORVASTATIN 20 MG TAB PO SCH (21:32)
[2016-09-05] MEDS: TICAGRELOR 90 MG TAB PO SCH (21:32)
[2016-09-06 01:38] VITALS: BP 144/65; PULSE 89; RESP 18; TEMP 98.6; O2SAT 95
[2016-09-06] MEDS: PIPERACIL-TAZO 2.25 GM PREMIX 50 ML IV SCH ×3 (03:29→18:10)
[2016-09-06 05:29] LABS: AUTOMATED NEUTROPHIL # 6.1 TH/MM3 (1.8-7.7); BASOPHIL % 0.4 % (0.0-2.0); EOSINOPHIL # 0.2 TH/MM3 (0-0.4); EOSINOPHIL % 2.5 % (0.0-4.0); HEMATOCRIT 29.2 % (35.0-46.0); HEMO FLAGS DIFF FINAL; LYMPH % 15.9 % (9.0-44.0); LYMPHOCYTE # 1.3 TH/MM3 (1.0-4.8); MEAN CELL VOLUME 80.3 FL (80.0-100.0); MEAN CORPUSCULAR HEMOGLOBIN 26.6 PG (27.0-34.0); MONO % 7.1 % (0.0-8.0); NEUT % 74.1 % (16.0-70.0); PLATELET COUNT 132 TH/MM3 (150-450); RED BLOOD COUNT 3.63 MIL/MM3 (4.00-5.30); RED CELL DISTRIBUTION WIDTH 15.6 % (11.6-17.2); WHITE BLOOD COUNT 8.2 TH/MM3 (4.0-11.0)
[2016-09-06 05:57] VITALS: BP 121/65; PULSE 85; RESP 18; TEMP 98.4; O2SAT 95
[2016-09-06 06:02] LABS: BICARBONATE 25.4 MEQ/L (21.0-32.0); POTASSIUM 3.2 MEQ/L (3.5-5.1)
[2016-09-06] MEDS: INSULIN ASPART SUPPLEMENTAL SCALE SQ SCH ×4 (06:21→22:36)
[2016-09-06] MEDS: LEVOTHYROXINE SODIUM 100 MCG TAB PO SCH (06:21)
[2016-09-06 08:00] VITALS: BP 125/67; PULSE 79; RESP 20; TEMP 96.8; O2SAT 95
[2016-09-06] MEDS ORDERED: POTASSIUM CHLORIDE 20 MEQ CONTROLLED RELEASE TAB PO ONE (08:15)
--- NOTE | 2016-09-06 09:02 | HHI.PR ---
Subjective Remarks Follow up for intractable nausea/vomiting, pancreatitis. The patient reports no further nausea/vomiting overnight or today. She was able to tolerate regular diet. She had some diarrhea yesterday but none today. Denies any abdominal pain. Denies fevers or chills. She is ambulating without difficulty. She would like to go home today if possible. Discussed with RN. Objective Vitals Vital Signs Date Time Temp Pulse Resp B/P Pulse Ox O2 Delivery O2 Flow Rate FiO2 09/06/16 05:57 98.4 85 18 121/65 95 09/06/16 01:38 98.6 89 18 144/65 95 09/05/16 20:58 97.4 84 20 155/75 93 09/05/16 16:03 98.6 81 20 142/64 91 09/05/16 12:01 98.2 84 20 141/64 92 I/O 09/05/16 09/05/16 09/05/16 09/06/16 09/06/16 09/06/16 07:00 15:00 23:00 07:00 15:00 23:00 Intake Total 300 ml Output Total 922 ml 547 ml Balance -922 ml 300 ml -547 ml IV Total 300 ml Peritoneal Fluid 922 ml Hemodialysis 547 ml # Voids 3 # Bowel Movements 1 Result Diagram: 09/06/16 0453 09/06/16 0453 Imaging Last Impressions Hepatobiliary Scan Nuclear Medicine 09/04/16 0000 Signed Impressions: Service Date/Time: Sunday, September 04, 2016 13:38 - CONCLUSION: 1. No evidence for biliary ductal obstruction. Normal uptake and excretion by the liver. No gallbladder contractile response to CCK which may indicate biliary dyskinesia. Rolan Mcmanus MD Gall Bladder Ultrasound 09/03/16 0000 Signed Impressions: Service Date/Time: Saturday, September 03, 2016 17:21 - CONCLUSION: 1. Cholelithiasis. 2. Slight fluid in the perihepatic and pericholecystic space. 3. The liver is slightly echogenic which maybe due to fatty infiltration and or hepatocellular dysfunction. Felicia Vidales MD Chest X-Ray 09/03/16 0000 Signed Impressions: Service Date/Time: Saturday, September 03, 2016 16:06 - CONCLUSION: No acute cardiopulmonary disease identified. Philip Auguste MD Objective Remarks GENERAL: Well-nourished, well-developed elderly female patient in NAD. Ambulating her room. SKIN: Warm and dry. No rash. HEAD: Normocephalic. Atraumatic. EYES: Pupils equal and round. No scleral icterus. No injection or drainage. ENT: No nasal bleeding or discharge. Mucous membranes pink and moist. NECK: Supple. Trachea midline. CARDIOVASCULAR: Regular rate and rhythm. S1, S2 noted. No murmur appreciated. RESPIRATORY: No accessory muscle use. Clear to auscultation. Breath sounds equal bilaterally. GASTROINTESTINAL: Abdomen soft, non-tender, nondistended. Normoactive bowel sounds x4. PD catheter in place in RUQ. MUSCULOSKELETAL: No obvious deformities. Trace b/l lower extremity edema. NEUROLOGICAL: Awake and alert. No obvious cranial nerve deficits. Motor grossly within normal limits. Normal speech. PSYCHIATRIC: Appropriate mood and affect; insight and judgment normal. Medications and IVs Current Medications Medications (Trade) Dose Ordered Sig/[place] Route Start Time Stop Time Status Last Admin (Zosyn 2.25 Gm Premix) 50 ml @ 100 mls/hr Q6H IV 09/04/16 01:00 09/06/16 09:05 (D50w (Vial) Inj) 25 ml UNSCH PRN IV PUSH 09/03/16 19:45 (Glucagon Inj) 1 mg UNSCH PRN OTHER 09/03/16 19:45 (NS Flush) 2 ml UNSCH PRN FLUSH 09/03/16 19:45 (NS Flush) 2 ml BID FLUSH 09/03/16 21:00 09/06/16 09:05 (Dulcolax Supp) 10 mg DAILY PRN ME 09/03/16 19:45 (Tylenol) 650 mg Q6H PRN PO 09/03/16 19:45 ([place] 5-325 Mg) 1 tab Q4H PRN PO 09/03/16 19:45 (Morphine Inj) 2 mg Q3H PRN IV 09/03/16 19:45 (Cardura) 4 mg DAILY PO 09/04/16 09:00 09/06/16 09:05 (Lasix) 80 mg BID PO 09/03/16 21:00 09/06/16 09:06 (Synthroid) 100 mcg DAILY@06 PO 09/04/16 06:00 09/06/16 06:21 (Renvela) 800 mg TID PO 09/04/16 09:00 09/06/16 09:05 (Phenergan Inj) 12.5 mg Q4H PRN IM 09/03/16 19:45 (NS Flush) 10 ml UNSCH PRN IVF 09/04/16 10:15 (Lipitor) 20 mg HS PO 09/04/16 21:00 09/05/16 21:32 (Bactroban 2% Cream) 1 applic Q12HR TOPICAL 09/04/16 21:00 09/06/16 09:06 (Brilinta) 90 mg BID PO 09/05/16 21:00 09/06/16 09:06 Urinary Catheter: No Vascular Central Line Catheter: No A/P Problem List: (1) Pancreatitis ICD Code: K85.90 Status: Acute (2) Hypokalemia ICD Code: E87.6 Status: Acute (3) Cholelithiasis ICD Code: K80.20 Status: Acute (4) Prolonged QT interval ICD Code: R94.31 Status: Acute (5) UTI (urinary tract infection) ICD Code: N39.0 Status: Acute (6) ESRD on peritoneal dialysis ICD Code: N18.6 Status: Acute (7) DM (diabetes mellitus) ICD Code: E11.9 Status: Acute Assessment and Plan 71-year-old female with a PMH of HTN, DM and ESRD on PD who presented w/ nausea , vomiting and decreased PO intake Intractable nausea and vomiting: Suspect secondary to UTI and pancreatitis, other possible etiologies include cholelithiasis vs peritonitis. Leukocytosis has improved. Afebrile. Peritoneal fluid with elevated WBC, although doubt peritonitis, follow-up culture, NGTD. Treating UTI. Antiemetics as needed. Advance diet as tolerated. Patient much improved, tolerating oral intake. Pancreatitis: Lipase 692, c/o nausea/vomiting, no abdominal pain. Possibly secondary to retching. Cautious IV hydration. Repeat lipase 605 today. Triglycerides 476. Cholelithiasis: Gallbladder US w/ cholelithiasis and slight fluid in perihepatic and pericholecystic space. General surgery consulted, HIDA scan was unremarkable, no plans for surgery. Continue IV Zosyn for now. UTI: U/a w/ evidence of UTI. Could definitely contribute to nausea and vomiting. Continue IV Zosyn as above. Urine Culture with Klebsiella Pneumoniae. ESRD on PD: Follows w/ Dr. Prescott as outpatient, consulted to resume PD. Prolonged QT Interval: EKG w/ QTC 565. Hold Metoprolol, replaced K+, avoid Zofran. Repeat EKG shows QTC within normal limits. DM: Uncontrolled. Sliding scale w/ Accu-Cheks. Hemoglobin A1c 11. Resume home long-acting insulin when tolerating diet. CAD: Brilinta was on hold for possible procedure, now resumed. Continue statin and metoprolol. Hypothyroidism: TSH slightly elevated at 4.25. Free T4 within normal limits. Continue home levothyroxine. Repeat thyroid function tests in 4-6 weeks as outpatient. DVT Prophylaxis: SCD/Teds. Written by Janie Verma, acting as scribe for Dr. Morgan on 09/06/16 at 09:02. The documentation accurately reflects the work performed [id number] by me Dr. Morgan on 09/06/16 at 09:02. Problem Qualifiers (1) Pancreatitis: (2) UTI (urinary tract infection): Qualified Code: N39.0 - Urinary tract infection without hematuria, site unspecified (3) DM (diabetes mellitus): Janie Verma PA-C Sep 06, 2016 09:02 Chiquis Morgan MD Sep 06, 2016 18:46
[2016-09-06] MEDS: SODIUM CHLORIDE 0.9% FLUSH 5 ML FLUSH FLUSH SCH ×2 (09:05→22:35)
[2016-09-06] MEDS: SEVELAMER CARBONATE 800 MG TAB PO SCH ×3 (09:05→18:10)
[2016-09-06] MEDS: DOXAZOSIN MESYLATE 4 MG TAB PO SCH (09:05)
[2016-09-06] MEDS: TICAGRELOR 90 MG TAB PO SCH ×2 (09:06→22:35)
[2016-09-06] MEDS: MUPIROCIN 2% CREAM 15 GM TOPICAL SCH ×2 (09:06→22:36)
[2016-09-06] MEDS: FUROSEMIDE 80 MG TAB PO SCH ×2 (09:06→22:35)
--- NOTE | 2016-09-06 10:38 | HHI.NPPN ---
Subjective Renal Failure: Chronic, End Stage Renal Disease Interval History PD going well. On clear liquid diet, nauseated but not vomiting today. ( Radha Covington) Review of Systems Gastrointestinal Gastrointestinal: Nausea & Vomiting (Radha Covington) Objective Data Data 09/05/16 09/06/16 19:00 07:00 Intake Total 300 ml Output Total 922 ml Balance -622 ml IV Total 300 ml Peritoneal Fluid 922 ml # Voids 2 1 # Bowel Movements 1 Vital Signs Date Time Temp Pulse Resp B/P Pulse Ox O2 Delivery O2 Flow Rate FiO2 09/06/16 08:00 96.8 79 20 125/67 95 09/06/16 05:57 98.4 85 18 121/65 95 09/06/16 01:38 98.6 89 18 144/65 95 09/05/16 20:58 97.4 84 20 155/75 93 09/05/16 16:03 98.6 81 20 142/64 91 09/05/16 12:01 98.2 84 20 141/64 92 (Radha Covington) -: 09/06/16 0453 09/06/16 0453 Imaging Last 72 hours Impressions Hepatobiliary Scan Nuclear Medicine 09/04/16 0000 Signed Impressions: Service Date/Time: Sunday, September 04, 2016 13:38 - CONCLUSION: 1. No evidence for biliary ductal obstruction. Normal uptake and excretion by the liver. No gallbladder contractile response to CCK which may indicate biliary dyskinesia. Rolan Mcmanus MD Tubes & Lines: Tenckhoff Catheter (Radha Covington) Physical Exam General Appearance: Well Developed, Well Nourished, No Acute Distress, Comfortable ( Radha Covington) Throat Throat Exam: Oral Mucosa [place] & Moist (Radha Covington) Neck Neck Exam: Neck Supple (Radha Covington) Pulmonary Resp Exam: Clear Bilaterally, Breath Sounds Equal (Radha Covington) Cardiology CV Exam: Regular, Normal Sinus Rhythm (Radha Covington) Gastrointestinal/Abdomen GI Exam: Soft, Non-Tender, Bowel Sounds Present, Positive Bowel Movement ( Radha Covington) Musculoskeletal MS Exam: Joints Intact, Normal Tone (Radha Covington) Integumentary Skin Exam: Clear, Warm, Dry (Radha Covington) Extremeties Extremities Exam: No Edema, Pedal Pulses Palpable (Radha Covington) Neurologic Neuro Exam: Alert, Awake, Oriented, Speech Clear, Moving All Extremities ( Radha Covington) Psychiatric Psych Exam: Appropriate Responses (Radha Covington) Assessment/Plan Discussed Condition With: Patient Assessment Summary: Diabetes Mellitus, End Stage Renal Disease Problem List: (1) ESRD on peritoneal dialysis Plan: Tolerating PD , using a 2.5% solution; 2 liter fill x 4 cycles, no last fill She did have some crusting and early ulceration near the exit site of her catheter on admission, now some drainage and erythema she states the exit site bleeds around catheter frequently; will order wound cx elevated WBC count in PD fluid but negative gram stain; She is on IV Zosyn Continue topical antibiotic ointment to this site. continue current plan phosphorus elevated, on Renvela but has refused some doses due to nausea/ vomiting; she did take today's dose (2) Pancreatitis Plan: lipase is higher today The patient presented with decreased p.o. intake and elevated lipase Tolerating some PO liquid diet at this time. She is on Zosyn Initial gallbladder ultrasound revealed signs of possible cholelithiasis, however, HIDA scan was negative. Continue follow up with surgery - no surgical intervention planned at this time. monitor clinically (3) DM (diabetes mellitus) Plan: A1c of 11. needs better glycemic control goal 140-180 mg/dL, continue insulin therapy (4) Prolonged QT interval Plan: Initial prolonged QT. continue to replace electrolytes as needed (5) UTI (urinary tract infection) Plan: culture reviewed, on Zosyn (Radha Covington) Plan patient was seen and examined. On antibiotic for UTI. Peritoneal fluid cell count is high, On Zosyn. Cultures negative. Admitted with pancreatitis. ( Jatin Duarte MD) Problem Qualifiers (1) Pancreatitis: (2) DM (diabetes mellitus): (3) UTI (urinary tract infection): Qualified Code: N39.0 - Urinary tract infection without hematuria, site unspecified Radha Covington Sep 06, 2016 10:38 Jatin Duarte MD Sep 07, 2016 10:06
[2016-09-06 12:00] VITALS: BP 137/61; PULSE 83; RESP 20; TEMP 96.4; O2SAT 98
[2016-09-06 16:00] VITALS: BP 130/62; PULSE 90; RESP 20; TEMP 96.9; O2SAT 96
[2016-09-06 21:51] VITALS: BP 149/70; PULSE 89; RESP 18; TEMP 97.7; O2SAT 93
[2016-09-06] MEDS: ATORVASTATIN 20 MG TAB PO SCH (22:35)
[2016-09-07 00:28] VITALS: BP 134/65; PULSE 85; RESP 18; TEMP 97.2; O2SAT 93
[2016-09-07] MEDS: PIPERACIL-TAZO 2.25 GM PREMIX 50 ML IV SCH ×3 (01:53→16:44)
[2016-09-07 06:04] VITALS: BP 135/66; PULSE 88; RESP 18; TEMP 97.7; O2SAT 93
[2016-09-07] MEDS: LEVOTHYROXINE SODIUM 100 MCG TAB PO SCH (06:38)
[2016-09-07] MEDS: INSULIN ASPART SUPPLEMENTAL SCALE SQ SCH ×4 (06:38→22:55)
[2016-09-07 07:40] VITALS: BP 133/62; PULSE 81; RESP 20; TEMP 97.6; O2SAT 94
[2016-09-07 07:59] LABS: AUTOMATED NEUTROPHIL # 5.4 TH/MM3 (1.8-7.7); BASOPHIL % 0.4 % (0.0-2.0); EOSINOPHIL # 0.2 TH/MM3 (0-0.4); EOSINOPHIL % 3.1 % (0.0-4.0); HEMATOCRIT 30.2 % (35.0-46.0); HEMO FLAGS DIFF FINAL; LYMPH % 17.7 % (9.0-44.0); LYMPHOCYTE # 1.3 TH/MM3 (1.0-4.8); MEAN CELL VOLUME 81.1 FL (80.0-100.0); MEAN CORPUSCULAR HGB CONC 33.3 % (32.0-36.0); MONO % 6.2 % (0.0-8.0); NEUT % 72.6 % (16.0-70.0); PLATELET COUNT 124 TH/MM3 (150-450); RED BLOOD COUNT 3.72 MIL/MM3 (4.00-5.30); RED CELL DISTRIBUTION WIDTH 15.6 % (11.6-17.2); WHITE BLOOD COUNT 7.5 TH/MM3 (4.0-11.0)
[2016-09-07] MEDS: TICAGRELOR 90 MG TAB PO SCH ×2 (08:29→22:54)
[2016-09-07] MEDS: DOXAZOSIN MESYLATE 4 MG TAB PO SCH (08:29)
[2016-09-07] MEDS: SEVELAMER CARBONATE 800 MG TAB PO SCH ×3 (08:29→16:43)
[2016-09-07] MEDS: FUROSEMIDE 80 MG TAB PO SCH ×2 (08:29→22:54)
[2016-09-07 08:30] LABS: BICARBONATE 24.9 MEQ/L (21.0-32.0); POTASSIUM 3.4 MEQ/L (3.5-5.1)
[2016-09-07] MEDS: SODIUM CHLORIDE 0.9% FLUSH 5 ML FLUSH FLUSH SCH ×2 (08:30→22:54)
[2016-09-07] MEDS: MUPIROCIN 2% CREAM 15 GM TOPICAL SCH ×2 (08:31→22:55)
[2016-09-07] MEDS ORDERED: POTASSIUM CHLORIDE 20 MEQ CONTROLLED RELEASE TAB PO ONE (09:30)
--- NOTE | 2016-09-07 10:29 | HHI.NPPN ---
Subjective Renal Failure: Chronic, End Stage Renal Disease Interval History Nausea/vomiting has improved. Lipase also improved. PD going well,. (Radha Covington) Review of Systems Gastrointestinal Gastrointestinal: Nausea & Vomiting GI Remarks improved (Radha Covington) Objective Data Data 09/06/16 09/07/16 19:00 07:00 Output Total 547 ml Balance -547 ml Hemodialysis 547 ml Vital Signs Date Time Temp Pulse Resp B/P Pulse Ox O2 Delivery O2 Flow Rate FiO2 09/07/16 07:40 97.6 81 20 133/62 94 09/07/16 06:04 97.7 88 18 135/66 93 09/07/16 00:28 97.2 85 18 134/65 93 09/06/16 21:51 97.7 89 18 149/70 93 09/06/16 16:00 96.9 90 20 130/62 96 09/06/16 12:00 96.4 83 20 137/61 98 (Radha Covington) -: 09/07/16 0716 09/07/16 0716 Microbiology 09/06/16 Gram Stain, Received Pending 09/06/16 Wound Culture, Received Pending Tubes & Lines: Tenckhoff Catheter (Radha Covington) Physical Exam General Appearance: Well Developed, Well Nourished, No Acute Distress, Comfortable ( Radha Covington) Throat Throat Exam: Oral Mucosa [place] & Moist (Radha Covington) Neck Neck Exam: Neck Supple (Radha Covington) Pulmonary Resp Exam: Clear Bilaterally, Breath Sounds Equal (Radha Covington) Cardiology CV Exam: Regular, Normal Sinus Rhythm (Radha Covington) Gastrointestinal/Abdomen GI Exam: Soft, Non-Tender, Bowel Sounds Present, Positive Bowel Movement GI Remarks PD catheter with serous drainage from exit site (Radha Covington) Musculoskeletal MS Exam: Joints Intact, Normal Tone (Radha Covington) Integumentary Skin Exam: Clear, Warm, Dry (Radha Covington) Extremeties Extremities Exam: No Edema, Pedal Pulses Palpable (Radha Covington) Neurologic Neuro Exam: Alert, Awake, Oriented, Speech Clear, Moving All Extremities ( Radha Covington) Psychiatric Psych Exam: Appropriate Responses (Radha Covington) Assessment/Plan Discussed Condition With: Patient Assessment Summary: Diabetes Mellitus, End Stage Renal Disease Problem List: (1) ESRD on peritoneal dialysis Plan: Tolerating PD , using a 2.5% solution; 2 liter fill x 4 cycles, no last fill UF 653 ml She did have some drainage and erythema at PD catheter exit site, wound cx in progress elevated WBC count in PD fluid but negative gram stain; She is on IV Zosyn Continue topical antibiotic ointment to this site. continue current plan phosphorus elevated but improved with Renvela potassium has been replaced renal panel in am (2) Pancreatitis Plan: lipase improved The patient presented with decreased p.o. intake and elevated lipase Tolerating some PO liquid diet at this time. She is on Zosyn Initial gallbladder ultrasound revealed signs of possible cholelithiasis, however, HIDA scan was negative. Continue follow up with surgery - no surgical intervention planned at this time. monitor clinically (3) DM (diabetes mellitus) Plan: A1c of 11. needs better glycemic control goal 140-180 mg/dL, continue insulin therapy (4) Prolonged QT interval Plan: Initial prolonged QT. continue to replace electrolytes as needed (5) UTI (urinary tract infection) Plan: culture reviewed, on Zosyn (Radha Covington) Problem List: (1) ESRD on peritoneal dialysis Plan: Tolerating PD , using a 2.5% solution; 2 liter fill x 4 cycles, no last fill UF 653 ml She did have some drainage and erythema at PD catheter exit site, wound cx in progress elevated WBC count in PD fluid but negative gram stain; She is on IV Zosyn Continue topical antibiotic ointment to this site. continue current plan phosphorus elevated but improved with Renvela potassium has been replaced renal panel in am (2) Pancreatitis Plan: lipase improved The patient presented with decreased p.o. intake and elevated lipase Tolerating some PO liquid diet at this time. She is on Zosyn Initial gallbladder ultrasound revealed signs of possible cholelithiasis, however, HIDA scan was negative. Continue follow up with surgery - no surgical intervention planned at this time. monitor clinically (3) DM (diabetes mellitus) Plan: A1c of 11. needs better glycemic control goal 140-180 mg/dL, continue insulin therapy (4) Prolonged QT interval Plan: Initial prolonged QT. continue to replace electrolytes as needed (5) UTI (urinary tract infection) Plan: culture reviewed, on Zosyn Plan patient was seen and examined. We will need to repeat dialysate studies. May add a dose of Vancomycin IP. (Jatin Duarte MD) Problem Qualifiers (1) Pancreatitis: (2) DM (diabetes mellitus): (3) UTI (urinary tract infection): Qualified Code: N39.0 - Urinary tract infection without hematuria, site unspecified Radha Covington Sep 07, 2016 10:29 Jatin Duarte MD Sep 07, 2016 19:24
[2016-09-07 11:32] VITALS: BP 125/60; PULSE 89; RESP 20; TEMP 97.2; O2SAT 94
--- NOTE | 2016-09-07 14:04 | HHI.PR ---
Subjective Remarks Follow up for pancreatitis, intractable N/V. The patient reports overall feeling slightly better today compared to previous days. The patient reports some nausea but no vomiting. She has decreased appetite. Diarrhea today x1. She felt feverish overnight but no chills, no documented fevers. Objective Vitals Vital Signs Date Time Temp Pulse Resp B/P Pulse Ox O2 Delivery O2 Flow Rate FiO2 09/07/16 11:32 97.2 89 20 125/60 94 09/07/16 07:40 97.6 81 20 133/62 94 09/07/16 06:04 97.7 88 18 135/66 93 09/07/16 00:28 97.2 85 18 134/65 93 09/06/16 21:51 97.7 89 18 149/70 93 09/06/16 16:00 96.9 90 20 130/62 96 I/O 09/06/16 09/06/16 09/06/16 09/07/16 09/07/16 09/07/16 07:00 15:00 23:00 07:00 15:00 23:00 Output Total 547 ml 653 ml Balance -547 ml -653 ml Peritoneal Fluid 653 ml Hemodialysis 547 ml Result Diagram: 09/07/1616 09/07/1616 Imaging Last Impressions Hepatobiliary Scan Nuclear Medicine 09/04/16 0000 Signed Impressions: Service Date/Time: Sunday, September 04, 2016 13:38 - CONCLUSION: 1. No evidence for biliary ductal obstruction. Normal uptake and excretion by the liver. No gallbladder contractile response to CCK which may indicate biliary dyskinesia. Rolan Mcmanus MD Gall Bladder Ultrasound 09/03/16 0000 Signed Impressions: Service Date/Time: Saturday, September 03, 2016 17:21 - CONCLUSION: 1. Cholelithiasis. 2. Slight fluid in the perihepatic and pericholecystic space. 3. The liver is slightly echogenic which maybe due to fatty infiltration and or hepatocellular dysfunction. Felicia Vidales MD Chest X-Ray 09/03/16 0000 Signed Impressions: Service Date/Time: Saturday, September 03, 2016 16:06 - CONCLUSION: No acute cardiopulmonary disease identified. Philip Auguste MD Objective Remarks GENERAL: Well-nourished, well-developed elderly female patient in [facility]. SKIN: Warm and dry. No rash. HEAD: Normocephalic. Atraumatic. NECK: Supple. Trachea midline. CARDIOVASCULAR: Regular rate and rhythm. S1, S2 noted. No murmur appreciated. RESPIRATORY: No accessory muscle use. Clear to auscultation. Breath sounds equal bilaterally. GASTROINTESTINAL: Abdomen soft, non-tender, nondistended. Normoactive bowel sounds x4. PD catheter in place in RUQ. MUSCULOSKELETAL: No obvious deformities. Trace b/l lower extremity edema. NEUROLOGICAL: Awake and alert. No obvious cranial nerve deficits. Motor grossly within normal limits. Normal speech. PSYCHIATRIC: Appropriate mood and affect; insight and judgment normal. Medications and IVs Current Medications Medications (Trade) Dose Ordered Sig/[place] Route Start Time Stop Time Status Last Admin (D50w (Vial) Inj) 25 ml UNSCH PRN IV PUSH 09/03/16 19:45 (Glucagon Inj) 1 mg UNSCH PRN OTHER 09/03/16 19:45 (NS Flush) 2 ml UNSCH PRN FLUSH 09/03/16 19:45 (NS Flush) 2 ml BID FLUSH 09/03/16 21:00 09/07/16 08:30 (Dulcolax Supp) 10 mg DAILY PRN [place] 09/03/16 19:45 (Tylenol) 650 mg Q6H PRN PO 09/03/16 19:45 ([place] 5-325 Mg) 1 tab Q4H PRN PO 09/03/16 19:45 (Morphine Inj) 2 mg Q3H PRN IV 09/03/16 19:45 (Cardura) 4 mg DAILY PO 09/04/16 09:00 09/07/16 08:29 (Lasix) 80 mg BID PO 09/03/16 21:00 09/07/16 08:29 (Synthroid) 100 mcg DAILY@06 PO 09/04/16 06:00 09/07/16 06:38 (Renvela) 800 mg TID PO 09/04/16 09:00 09/07/16 12:07 (Phenergan Inj) 12.5 mg Q4H PRN IM 09/03/16 19:45 (NS Flush) 10 ml UNSCH PRN IVF 09/04/16 10:15 (Lipitor) 20 mg HS PO 09/04/16 21:00 09/06/16 22:35 (Bactroban 2% Cream) 1 applic Q12HR TOPICAL 09/04/16 21:00 09/07/16 08:31 Ticagrelor 90 mg 90 mg BID PO 09/05/16 21:00 09/07/16 08:29 (Zosyn 2.25 Gm Premix) 50 ml @ 100 mls/hr Q8H IV 09/06/16 17:00 09/07/16 08:30 Urinary Catheter: No Vascular Central Line Catheter: No A/P Problem List: (1) Pancreatitis ICD Code: K85.90 Status: Acute (2) Hypokalemia ICD Code: E87.6 Status: Acute (3) Cholelithiasis ICD Code: K80.20 Status: Acute (4) Prolonged QT interval ICD Code: R94.31 Status: Acute (5) UTI (urinary tract infection) ICD Code: N39.0 Status: Acute (6) ESRD on peritoneal dialysis ICD Code: N18.6 Status: Acute (7) DM (diabetes mellitus) ICD Code: E11.9 Status: Acute Assessment and Plan 71-year-old female with a PMH of HTN, DM and ESRD on PD who presented w/ nausea , vomiting and decreased PO intake Intractable nausea and vomiting: Suspect secondary to UTI and pancreatitis, other possible etiologies include cholelithiasis vs peritonitis. Leukocytosis has improved. Afebrile. Peritoneal fluid with elevated WBC, although doubt peritonitis, follow-up culture, NGTD. Nephrology ordered wound culture of peritoneal dialysis catheter, pending. Treating UTI. Antiemetics as needed. Advance diet as tolerated. Patient much improved, tolerating oral intake. Pancreatitis: Lipase 692, c/o nausea/vomiting, no abdominal pain. Possibly secondary to retching. Cautious IV hydration. Repeat lipase 478 today, improving. Triglycerides 476. Cholelithiasis: Gallbladder US w/ cholelithiasis and slight fluid in perihepatic and pericholecystic space. General surgery consulted, HIDA scan was unremarkable, no plans for surgery. Continue IV Zosyn for now. UTI: U/a w/ evidence of UTI. Could definitely contribute to nausea and vomiting. Continue IV Zosyn as above. Urine Culture with Klebsiella Pneumoniae. ESRD on PD: Follows w/ Dr. Prescott as outpatient, consulted to resume PD. Prolonged QT Interval: EKG w/ QTC 565. Hold Metoprolol, replaced K+, avoid Zofran. Repeat EKG shows QTC within normal limits. DM: Uncontrolled. Sliding scale w/ Accu-Cheks. Hemoglobin A1c 11. Resume home long-acting insulin when tolerating diet. CAD: Brilinta was on hold for possible procedure, now resumed. Continue statin and metoprolol. Hypothyroidism: TSH slightly elevated at 4.25. Free T4 within normal limits. Continue home levothyroxine. Repeat thyroid function tests in 4-6 weeks as outpatient. DVT Prophylaxis: SCD/Teds. Written by Janie Verma, acting as scribe for Dr. Morgan on 09/07/16 at 13:59. The documentation accurately reflects the work performed [id number] by me Dr. Morgan on 09/07/16 at 13:59. Discharge Planning Possible discharge in 1-2 days if wound culture unremarkable and lipase continues to trend down. Problem Qualifiers (1) Pancreatitis: (2) UTI (urinary tract infection): Qualified Code: N39.0 - Urinary tract infection without hematuria, site unspecified (3) DM (diabetes mellitus): Janie Verma PA-C Sep 07, 2016 14:04 Chiquis Morgan MD Sep 07, 2016 17:11
[2016-09-07 15:25] VITALS: BP 130/60; PULSE 94; RESP 22; TEMP 97.6; O2SAT 94
[2016-09-07] MEDS: LACTOBACILLUS ACIDOPHILUS TAB PO SCH (16:43)
[2016-09-07] MEDS ORDERED: VANCOMYCIN HCL 1000 MG VIAL IP SCH (20:00)
[2016-09-07 21:01] VITALS: BP 132/64; PULSE 88; RESP 18; TEMP 97.2; O2SAT 93
[2016-09-07] MEDS: ATORVASTATIN 20 MG TAB PO SCH (22:55)
[2016-09-08] MEDS: PIPERACIL-TAZO 2.25 GM PREMIX 50 ML IV SCH ×2 (01:42→09:16)
[2016-09-08 01:52] VITALS: BP 131/62; PULSE 89; RESP 18; TEMP 97.2; O2SAT 93
[2016-09-08] MEDS: LEVOTHYROXINE SODIUM 100 MCG TAB PO SCH (05:35)
[2016-09-08 06:00] VITALS: BP 140/60; PULSE 84; RESP 18; TEMP 97.4; O2SAT 93
[2016-09-08] MEDS: INSULIN ASPART SUPPLEMENTAL SCALE SQ SCH ×2 (06:38→13:50)
[2016-09-08 06:43] LABS: POTASSIUM 3.4 MEQ/L (3.5-5.1)
[2016-09-08] MEDS ORDERED: POTASSIUM CHLORIDE 20 MEQ CONTROLLED RELEASE TAB PO ONE (08:00)
[2016-09-08 08:48] VITALS: BP 133/68; PULSE 85; RESP 18; TEMP 97.9; O2SAT 94
[2016-09-08] MEDS: LACTOBACILLUS ACIDOPHILUS TAB PO SCH ×2 (09:00→13:00)
[2016-09-08] MEDS: SEVELAMER CARBONATE 800 MG TAB PO SCH ×2 (09:17→13:50)
[2016-09-08] MEDS: FUROSEMIDE 80 MG TAB PO SCH (09:17)
[2016-09-08] MEDS: TICAGRELOR 90 MG TAB PO SCH (09:17)
[2016-09-08] MEDS: DOXAZOSIN MESYLATE 4 MG TAB PO SCH (09:17)
[2016-09-08] MEDS: SODIUM CHLORIDE 0.9% FLUSH 5 ML FLUSH FLUSH SCH (09:20)
[2016-09-08] MEDS: MUPIROCIN 2% CREAM 15 GM TOPICAL SCH (09:20)
--- NOTE | 2016-09-08 10:02 | HHI.PR ---
Subjective Remarks Follow up for abdominal pain, pancreatitis, diarrhea. The patient reports feeling better again today. No further episodes of diarrhea. No abdominal pain, fevers, or chills. She is tolerating oral intake. She wants to go home. 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 Objective Vitals Vital Signs Date Time Temp Pulse Resp B/P Pulse Ox O2 Delivery O2 Flow Rate FiO2 09/08/16 08:48 97.9 85 18 133/68 94 09/08/16 06:00 97.4 84 18 140/60 93 09/08/16 01:52 97.2 89 18 131/62 93 09/07/16 21:01 97.2 88 18 132/64 93 09/07/16 15:25 97.6 94 22 130/60 94 09/07/16 11:32 97.2 89 20 125/60 94 I/O 09/07/16 09/07/16 09/07/16 09/08/16 09/08/16 09/08/16 07:00 15:00 23:00 07:00 15:00 23:00 Intake Total 850 ml Output Total 653 ml 1000 ml Balance -653 ml -150 ml Intake Oral 750 ml IV Total 100 ml Output Urine Total 1000 ml Peritoneal Fluid 653 ml # Voids 1 Result Diagram: 09/07/16 0716 09/08/16 0548 Imaging Last Impressions Hepatobiliary Scan Nuclear Medicine 09/04/16 0000 Signed Impressions: Service Date/Time: Sunday, September 04, 2016 13:38 - CONCLUSION: 1. No evidence for biliary ductal obstruction. Normal uptake and excretion by the liver. No gallbladder contractile response to CCK which may indicate biliary dyskinesia. Rolan Mcmanus MD Gall Bladder Ultrasound 09/03/16 0000 Signed Impressions: Service Date/Time: Saturday, September 03, 2016 17:21 - CONCLUSION: 1. Cholelithiasis. 2. Slight fluid in the perihepatic and pericholecystic space. 3. The liver is slightly echogenic which maybe due to fatty infiltration and or hepatocellular dysfunction. Felicia Vidales MD Chest X-Ray 09/03/16 0000 Signed Impressions: Service Date/Time: Dorian, September 03, 2016 16:06 - CONCLUSION: No acute cardiopulmonary disease identified. Philip Auguste MD Objective Remarks GENERAL: Well-nourished, well-developed elderly female patient in [facility]. SKIN: Warm and dry. No rash. HEAD: Normocephalic. Atraumatic. NECK: Supple. Trachea midline. CARDIOVASCULAR: Regular rate and rhythm. S1, S2 noted. No murmur appreciated. RESPIRATORY: No accessory muscle use. Clear to auscultation. Breath sounds equal bilaterally. GASTROINTESTINAL: Abdomen soft, non-tender, nondistended. Normoactive bowel sounds x4. PD catheter in place in RUQ. MUSCULOSKELETAL: No obvious deformities. Trace b/l lower extremity edema. NEUROLOGICAL: Awake and alert. No obvious cranial nerve deficits. Motor grossly within normal limits. Normal speech. PSYCHIATRIC: Appropriate mood and affect; insight and judgment normal. Medications and IVs Current Medications Medications (Trade) Dose Ordered Sig/[place] Route Start Time Stop Time Status Last Admin (D50w (Vial) Inj) 25 ml UNSCH PRN IV PUSH 09/03/16 19:45 (Glucagon Inj) 1 mg UNSCH PRN OTHER 09/03/16 19:45 (NS Flush) 2 ml UNSCH PRN FLUSH 09/03/16 19:45 (NS Flush) 2 ml BID FLUSH 09/03/16 21:00 09/08/16 09:20 (Dulcolax Supp) 10 mg DAILY PRN NE 09/03/16 19:45 (Tylenol) 650 mg Q6H PRN PO 09/03/16 19:45 ([place]o 5-325 Mg) 1 tab Q4H PRN PO 09/03/16 19:45 (Morphine Inj) 2 mg Q3H PRN IV 09/03/16 19:45 (Cardura) 4 mg DAILY PO 09/04/16 09:00 09/08/16 09:17 (Lasix) 80 mg BID PO 09/03/16 21:00 09/08/16 09:17 (Synthroid) 100 mcg DAILY@06 PO 09/04/16 06:00 09/08/16 05:35 (Renvela) 800 mg TID PO 09/04/16 09:00 09/08/16 09:17 (Phenergan Inj) 12.5 mg Q4H PRN IM 09/03/16 19:45 (NS Flush) 10 ml UNSCH PRN IVF 09/04/16 10:15 (Lipitor) 20 mg HS PO 09/04/16 21:00 09/07/16 22:55 (Bactroban 2% Cream) 1 applic Q12HR TOPICAL 09/04/16 21:00 09/08/16 09:20 Ticagrelor 90 mg 90 mg BID PO 09/05/16 21:00 09/08/16 09:17 (Zosyn 2.25 Gm Premix) 50 ml @ 100 mls/hr Q8H IV 09/06/16 17:00 09/08/16 09:16 (Lactinex) 1 tab TID PO 09/07/16 18:00 09/07/16 16:43 (Vancomycin Inj) 2,000 mg Q7D IP 09/07/16 20:00 Urinary Catheter: No Vascular Central Line Catheter: No A/P Problem List: (1) Pancreatitis ICD Code: K85.90 Status: Acute (2) Hypokalemia ICD Code: E87.6 Status: Acute (3) Cholelithiasis ICD Code: K80.20 Status: Acute (4) Prolonged QT interval ICD Code: R94.31 Status: Acute (5) UTI (urinary tract infection) ICD Code: N39.0 Status: Acute (6) ESRD on peritoneal dialysis ICD Code: N18.6 Status: Acute (7) DM (diabetes mellitus) ICD Code: E11.9 Status: Acute Assessment and Plan 71-year-old female with a PMH of HTN, DM and ESRD on PD who presented w/ nausea , vomiting and decreased PO intake Intractable nausea and vomiting: Suspect secondary to UTI and pancreatitis, other possible etiologies include cholelithiasis vs peritonitis. Leukocytosis has improved, Afebrile. Peritoneal fluid with elevated WBC, although doubt peritonitis, follow-up culture, NGTD. Nephrology ordered wound culture of peritoneal dialysis catheter which showed no growth in 48hrs. 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 Advance diet as tolerated. Patient much improved, tolerating oral intake. Will discharge. Pancreatitis: Lipase 692, c/o nausea/vomiting, no abdominal pain. Possibly secondary to retching. Cautious IV hydration. Triglycerides 476. Repeat lipase still above 600 today although patient's symptoms improving, tolerating oral intake. Stable for d/c. Cholelithiasis: Gallbladder US w/ cholelithiasis and slight fluid in perihepatic and pericholecystic space. General surgery consulted, HIDA scan was unremarkable, no plans for surgery. UTI: U/a w/ evidence of UTI. Could definitely contribute to nausea and vomiting. Continue IV Zosyn as above. Urine Culture with Klebsiella Pneumoniae. Transition abx to po ceftin. ESRD on PD: Follows w/ Dr. Prescott as outpatient, consulted to resume PD. Prolonged QT Interval: EKG w/ QTC 565. Hold Metoprolol, replaced K+, avoid Zofran. Repeat EKG shows QTC within normal limits. DM: Uncontrolled. Sliding scale w/ Accu-Cheks. Hemoglobin A1c 11. Resume home long-acting insulin when tolerating diet. CAD: Brilinta was on hold for possible procedure, now resumed. Continue statin and metoprolol. Hypothyroidism: TSH slightly elevated at 4.25. Free T4 within normal limits. Continue home levothyroxine. Repeat thyroid function tests in 4-6 weeks as outpatient. DVT Prophylaxis: SCD/Teds. Written by Janie Verma, acting as scribe for Dr. Morgan on 09/08/16 at 10:00. The documentation accurately reflects the work performed [id number] by me Dr. Morgan on 09/08/16 at 10:00. Discharge Planning Discharge today, see discharge summary. Problem Qualifiers (1) Pancreatitis: (2) UTI (urinary tract infection): Qualified Code: N39.0 - Urinary tract infection without hematuria, site unspecified (3) DM (diabetes mellitus): Janie Verma PA-C Sep 08, 2016 10:02 Chiquis Morgan MD Sep 08, 2016 16:44
--- NOTE | 2016-09-08 10:46 | HHI.NPPN ---
Subjective Renal Failure: Chronic, End Stage Renal Disease Interval History She feels better today. No further nausea. PD going well. (Radha Covington) Review of Systems Gastrointestinal Gastrointestinal: Nausea & Vomiting GI Remarks improved (Radha Covington) Objective Data Data 09/07/16 09/08/16 19:00 07:00 Intake Total 850 ml Output Total 1653 ml Balance -803 ml Intake Oral 750 ml IV Total 100 ml Output Urine Total 1000 ml Peritoneal Fluid 653 ml # Voids 1 Vital Signs Date Time Temp Pulse Resp B/P Pulse Ox O2 Delivery O2 Flow Rate FiO2 09/08/16 08:48 97.9 85 18 133/68 94 09/08/16 06:00 97.4 84 18 140/60 93 09/08/16 01:52 97.2 89 18 131/62 93 09/07/16 21:01 97.2 88 18 132/64 93 09/07/16 15:25 97.6 94 22 130/60 94 09/07/16 11:32 97.2 89 20 125/60 94 (Radha Covington) -: 09/07/16 0716 09/08/16 0548 Tubes & Lines: Tenckhoff Catheter (Radha Covington) Physical Exam General Appearance: Well Developed, Well Nourished, No Acute Distress, Comfortable ( Radha Covington) Throat Throat Exam: Oral Mucosa [place] & Moist (Radha Covington) Neck Neck Exam: Neck Supple (Radha Covington) Pulmonary Resp Exam: Clear Bilaterally, Breath Sounds Equal (Radha Covington) Cardiology CV Exam: Regular, Normal Sinus Rhythm (Radha Covington) Gastrointestinal/Abdomen GI Exam: Soft, Non-Tender, Bowel Sounds Present, Positive Bowel Movement GI Remarks PD catheter with serous drainage from exit site (Radha Covington) Musculoskeletal MS Exam: Joints Intact, Normal Tone (Radha Covington) Integumentary Skin Exam: Clear, Warm, Dry (Radha Covington) Extremeties Extremities Exam: No Edema, Pedal Pulses Palpable (Radha Covington) Neurologic Neuro Exam: Alert, Awake, Oriented, Speech Clear, Moving All Extremities ( Radha Covington) Psychiatric Psych Exam: Appropriate Responses (Radha Covington) Assessment/Plan Discussed Condition With: Patient Assessment Summary: Diabetes Mellitus, End Stage Renal Disease Problem List: (1) ESRD on peritoneal dialysis Plan: Tolerating PD , using a 2.5% solution; 2 liter fill x 4 cycles, no last fill UF has been adequate She does have drainage and erythema at PD catheter exit site, wound cx with no growth elevated WBC count in PD fluid but negative gram stain; She is on IV Zosyn; will repeat cell count today, give 2 g vancomycin in 2 liters of PD fluid, she can drain at home after 6 hr dwell time Continue topical antibiotic ointment to this site. phosphorus elevated, continue Renvela potassium replacement given she can be discharged later today after she has IP antibiotics infused, understands plan to drain this evening; resume normal PD cycle tonight she will be followed in PD clinic (2) Pancreatitis Plan: lipase fluctuant, is higher today The patient presented with decreased p.o. intake and elevated lipase Tolerating diet at this time. She is on Zosyn Initial gallbladder ultrasound revealed signs of possible cholelithiasis, however, HIDA scan was negative. Continue follow up with surgery - no surgical intervention planned at this time. monitor clinically (3) DM (diabetes mellitus) Plan: A1c of 11. needs better glycemic control goal 140-180 mg/dL, continue insulin therapy (4) Prolonged QT interval Plan: Initial prolonged QT. continue to replace electrolytes as needed (5) UTI (urinary tract infection) Plan: culture reviewed, on Zosyn (Radha Covington) Plan patient was seen and examined. Above plan was formulated by me. To be discharged today. (Jatin Duarte MD) Problem Qualifiers (1) Pancreatitis: (2) DM (diabetes mellitus): (3) UTI (urinary tract infection): Qualified Code: N39.0 - Urinary tract infection without hematuria, site unspecified Radha Covington Sep 08, 2016 10:46 Jatin Duarte MD Sep 09, 2016 09:04
[2016-09-08 12:52] VITALS: BP 131/57; PULSE 89; RESP 18; TEMP 98.6; O2SAT 94
[2016-09-08] MEDS ORDERED: LACT PO (14:14)
[2016-09-08] MEDS ORDERED: MUPI2%T TOPICAL (14:14)
[2016-09-08] MEDS ORDERED: CEFT500T3 PO (14:14)
--- NOTE | 2016-09-08 14:14 | HHI.DCPOC ---
Discharge Care Plan Diagnosis: (1) Nausea and vomiting (2) UTI (urinary tract infection) (3) ESRD on peritoneal dialysis (4) DM (diabetes mellitus) (5) Pancreatitis (6) Cholelithiasis Goals to Promote Your Health * To prevent worsening of your condition and complications * To maintain your health at the optimal level Directions to Meet Your Goals Take your medications as prescribed Follow your dietary instruction Follow activity as directed Keep your appointments as scheduled Take your immunizations and boosters as scheduled If your symptoms worsen call your PCP, if no PCP go to Urgent Care Center or Emergency Room Smoking is Dangerous to Your Health. Avoid second hand smoke Call the 24-hour hour crisis hotline for domestic abuse at Janie Verma PA-C Sep 08, 2016 14:14
--- NOTE | 2016-09-08 14:25 | HHI.DS ---
Discharge Summary Admission Date Sep 03, 2016 at 7:42 pm Discharge Date: Sep 08, 2016 Admitting Diagnosis acute nausea and vomiting, pancreatitis,cholelithiasis, prolonged QT (1) Pancreatitis ICD Code: K85.90 Diagnosis: Principal (2) Hypokalemia ICD Code: E87.6 Diagnosis: Secondary (3) Cholelithiasis ICD Code: K80.20 Diagnosis: Secondary (4) Prolonged QT interval ICD Code: R94.31 Diagnosis: Secondary (5) UTI (urinary tract infection) ICD Code: N39.0 Diagnosis: Principal (6) ESRD on peritoneal dialysis ICD Code: N18.6 Diagnosis: Principal (7) DM (diabetes mellitus) ICD Code: E11.9 Diagnosis: Secondary Procedures None. Brief History - From Admission This is a 71-year-old female with a PMH of HTN, DM and ESRD on PD who presented to the ER w/ nausea, vomiting and decreased PO intake. Per pt and Daughter, symptoms have been ongoing "since [place]" but have gotten progressively worse in the last 1wk. Reports approx 20-30 episodes of non-bloody emesis daily , denies diarrhea, fever or chills. States unable to take medications and stopped using Insulin x3 wks as not eating. Denies association w/ meals. No abdominal pain. On arrival, BP 138/65, HR 94, O2 sat 97% on RA, Afebrile. WBC 11.6. K+ 3.4. Creatinine 6.00. Lipase 692. EKG w/ prolonged QT interval. U/ a w/ UTI. S/p Zofran in ER, nausea/vomiting resolved. Gallbladder US w/ cholelithiasis, slight fluid and perihepatic and pericholecystic space. Dr. Quezada consulted by ER physician, will evaluate in a.m. CXR with no acute findings. S/p Zosyn in ER. CBC/BMP: 09/07/16 0716 09/08/16 0548 Significant Findings Laboratory Tests Test 09/06/16 09/07/16 09/08/16 04:53 07:16 05:48 Red Blood Count 3.63 MIL/MM3 3.72 MIL/MM3 (4.00-5.30) (4.00-5.30) Hemoglobin 9.6 GM/DL 10.1 GM/DL (11.6-15.3) (11.6-15.3) Hematocrit 29.2 % 30.2 % (35.0-46.0) (35.0-46.0) Mean Corpuscular Hemoglobin 26.6 PG (27.0-34.0) Platelet Count 132 TH/MM3 124 TH/MM3 (150-450) (150-450) Neutrophils (%) (Auto) 74.1 % 72.6 % (16.0-70.0) (16.0-70.0) Sodium Level 135 MEQ/L 135 MEQ/L 135 MEQ/L (136-145) (136-145) (136-145) Potassium Level 3.2 MEQ/L 3.4 MEQ/L 3.4 MEQ/L (3.5-5.1) (3.5-5.1) (3.5-5.1) Chloride Level 95 MEQ/L 95 MEQ/L 97 MEQ/L (98-107) (98-107) (98-107) Blood Urea Nitrogen 57 MG/DL (7-18) 46 MG/DL (7-18) 43 MG/DL (7-18) Creatinine 5.38 MG/DL 5.03 MG/DL 4.91 MG/DL (0.50-1.00) (0.50-1.00) (0.50-1.00) Estimat Glomerular Filtration 8 ML/MIN (>89) 8 ML/MIN (>89) 9 ML/MIN (>89) Rate Random Glucose 225 MG/DL 236 MG/DL 223 MG/DL (74-106) (74-106) (74-106) Calcium Level 7.6 MG/DL 8.0 MG/DL 7.9 MG/DL (8.5-10.1) (8.5-10.1) (8.5-10.1) Phosphorus Level 6.2 MG/DL 5.6 MG/DL 5.7 MG/DL (2.5-4.9) (2.5-4.9) (2.5-4.9) Albumin 2.4 GM/DL 2.4 GM/DL (3.4-5.0) (3.4-5.0) Lipase 605 U/L 478 U/L 622 U/L (73-393) (73-393) (73-393) Imaging Last Impressions Hepatobiliary Scan Nuclear Medicine 09/04/16 0000 Signed Impressions: Service Date/Time: Sunday, September 04, 2016 13:38 - CONCLUSION: 1. No evidence for biliary ductal obstruction. Normal uptake and excretion by the liver. No gallbladder contractile response to CCK which may indicate biliary dyskinesia. Rolan Mcmanus MD Gall Bladder Ultrasound 09/03/16 0000 Signed Impressions: Service Date/Time: Saturday, September 03, 2016 17:21 - CONCLUSION: 1. Cholelithiasis. 2. Slight fluid in the perihepatic and pericholecystic space. 3. The liver is slightly echogenic which maybe due to fatty infiltration and or hepatocellular dysfunction. Felicia Vidales MD Chest X-Ray 09/03/16 0000 Signed Impressions: Service Date/Time: Saturday, September 03, 2016 16:06 - CONCLUSION: No acute cardiopulmonary disease identified. Philip Auguste MD PE at Discharge GENERAL: Well-nourished, well-developed elderly female patient in [facility]. SKIN: Warm and dry. No rash. HEAD: Normocephalic. Atraumatic. NECK: Supple. Trachea midline. CARDIOVASCULAR: Regular rate and rhythm. S1, S2 noted. No murmur appreciated. RESPIRATORY: No accessory muscle use. Clear to auscultation. Breath sounds equal bilaterally. GASTROINTESTINAL: Abdomen soft, non-tender, nondistended. Normoactive bowel sounds x4. PD catheter in place in RUQ. MUSCULOSKELETAL: No obvious deformities. Trace b/l lower extremity edema. NEUROLOGICAL: Awake and alert. No obvious cranial nerve deficits. Motor grossly within normal limits. Normal speech. PSYCHIATRIC: Appropriate mood and affect; insight and judgment normal. Hospital Course 71-year-old female with a PMH of HTN, DM and ESRD on PD who presented w/ nausea , vomiting and decreased PO intake Intractable nausea and vomiting: Suspect secondary to UTI and pancreatitis, other possible etiologies include cholelithiasis vs peritonitis. Leukocytosis has improved, Afebrile. Peritoneal fluid with elevated WBC, although doubt peritonitis, follow-up culture, NGTD. Nephrology ordered wound culture of peritoneal dialysis catheter which showed no growth in 48hrs. 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 Advance diet as tolerated. Patient much improved, tolerating oral intake. Will discharge. Pancreatitis: Lipase 692, c/o nausea/vomiting, no abdominal pain. Possibly secondary to retching. Cautious IV hydration. Triglycerides 476. Repeat lipase still above 600 today although patient's symptoms improving, tolerating oral intake. Stable for d/c. Cholelithiasis: Gallbladder US w/ cholelithiasis and slight fluid in perihepatic and pericholecystic space. General surgery consulted, HIDA scan was unremarkable, no plans for surgery. UTI: U/a w/ evidence of UTI. Could definitely contribute to nausea and vomiting. Continue IV Zosyn as above. Urine Culture with Klebsiella Pneumoniae. Transition abx to po ceftin. ESRD on PD: Follows w/ Dr. Prescott as outpatient, consulted to resume PD. Prolonged QT Interval: EKG w/ QTC 565. Hold Metoprolol, replaced K+, avoid Zofran. Repeat EKG shows QTC within normal limits. DM: Uncontrolled. Sliding scale w/ Accu-Cheks. Hemoglobin A1c 11. Resume home long-acting insulin when tolerating diet. CAD: Brilinta was on hold for possible procedure, now resumed. Continue statin and metoprolol. Hypothyroidism: TSH slightly elevated at 4.25. Free T4 within normal limits. Continue home levothyroxine. Repeat thyroid function tests in 4-6 weeks as outpatient. DVT Prophylaxis: SCD/Teds. Written by Janie Verma, acting as scribe for Dr. Morgan on 09/08/16 at 10:00. The documentation accurately reflects the work performed [id number] by me Dr. Morgan on 09/08/16 at 10:00. Pt Condition on Discharge: Stable Discharge Disposition: Disch w/ Home Health Serv Discharge Time: > 30 minutes Discharge Instructions DIET: Follow Instructions for: Renal Failure Diet Activities you can perform: Regular-No Restrictions Follow up Referrals: Nephrology - 09/16/16 with Jatin Duarte MD PCP Follow-up - 1 Week New Medications: Cefuroxime (Ceftin) 500 Mg Tab 500 MG PO BID Infection #10 Ref 0 TAB Lactobacillus Acidophilus (Acidophilus/l-Sporogenes) 1 Tab Tab 1 TAB PO TID Bowel Management #21 TAB Mupirocin Topical (Bactroban Topical) 2 % Cream 1 APPLIC TOPICAL Q12HR apply around peritoneal dialysis catheter site twice a day Rash #1 TUBE Continued Medications: Atorvastatin (Atorvastatin) 20 Mg Tab 20 MG PO HS Cholesterol Management #30 Ref 0 TAB Doxazosin (Doxazosin) 4 Mg Tab 4 MG PO DAILY TAB Furosemide (Furosemide) 80 Mg Tab 80 MG PO BID #60 Ref 0 TAB Glimepiride (Glimepiride) 4 Mg Tab 8 MG PO DAILY Take with breakfast or first main meal Blood Sugar Management #30 Ref 0 TAB Insulin Human NPH Inj (Novolin N Inj) 1,000 Unit/10 Ml Vial 0 SQ DIRECTED Sliding Scale As Directed. Blood Sugar Management #10 Ref 0 ML Insulin Human Regular Inj (Novolin R Inj) 1,000 Unit/10 Ml Vial 0 SQ DIRECTED Sliding Scale As Directed. Blood Sugar Management #10 Ref 0 ML Levothyroxine (Levothyroxine) 100 Mcg Tab 100 MCG PO DAILY Thyroid #30 Ref 0 TAB Metoprolol Tartrate (Metoprolol Tartrate) 50 Mg Tab 50 MG PO BID #60 Ref 0 TAB Sevelamer Carbonate (Renvela) 800 Mg Tab 800 MG PO TID Control phosphorous levels #90 Ref 0 TAB Ticagrelor (Brilinta) 90 Mg Tab 90 MG PO BID Blood Clot Prevention #60 Ref 0 TAB Janie Verma PA-C Sep 08, 2016 14:25 Chiquis Morgan MD Sep 08, 2016 20:16
[2016-09-08 15:05] LABS: PERITONEAL LYMPHS 0 %; PERITONEAL POLYS(SEGS) 40 %; PERITONEAL WBC 77 /MM3 (0-10)
[2016-09-08 15:06] LABS: PERITONEAL EOS 5 %; PERITONEAL HISTIOCYTES 15 %; PERITONEAL MONOS 40 %
[2016-09-08 15:48] VITALS: BP 143/95; PULSE 90; RESP 18; TEMP 98; O2SAT 94
--- NOTE | 2016-09-08 16:27 | HHI.FF ---
Face to Face Verification Diagnosis: (1) ESRD on peritoneal dialysis (2) UTI (urinary tract infection) (3) DM (diabetes mellitus) (4) Pancreatitis (5) Cholelithiasis (6) Nausea and vomiting Physical Therapy Order: Evaluate and Treat, Improve ambulation, Strength and gait training Home Health Nursing Order: Medical education Signs/symptoms of disease process Nursing assessment with vital signs I have seen patient Korina Velásquez on 09/08/16. My clinical findings support the need for the requested home health care services because: Ltd mobility - disease progression Deconditioned w/ increased weakness Limited ability to care for self I certify that my clinical findings support that this patient is homebound because: Unsteady gait/balance Unsafe to leave home unassisted Janie Verma PA-C Sep 08, 2016 16:27 Chiquis Morgan MD Sep 08, 2016 20:17
== END 2016-09-08 17:39 | disposition home or self-care (01) ==
LOC: NEPE 14:56 → NEDA 19:42 → NEPGCP 21:17
PROVIDERS: ADMIT Hospitalist; ATTEND Hospitalist
DX: N18.6 End stage renal disease (principal); I12.0 Hypertensive chronic kidney disease with stage 5 chronic kidney disease or end stage renal disease; N39.0 Urinary tract infection, site not specified; B96.1 Klebsiella pneumoniae [K. pneumoniae] as the cause of diseases classified elsewhere; K85.90 Acute pancreatitis without necrosis or infection, unspecified; E11.65 Type 2 diabetes mellitus with hyperglycemia; E03.9 Hypothyroidism, unspecified; E87.6 Hypokalemia; I25.10 Atherosclerotic heart disease of native coronary artery without angina pectoris; K80.10 Calculus of gallbladder with chronic cholecystitis without obstruction; Z79.4 Long term (current) use of insulin; Z91.14 Patient's other noncompliance with medication regimen; Z95.5 Presence of coronary angioplasty implant and graft; Z99.2 Dependence on renal dialysis
CPT/HCPCS: 71010; 76705; 78227; 80048; 80053; 80061; 80069; 81001; 82010; 82948; 83036; 83690; 83735; 84100; 84155; 84439; 84443; 85025; 87070; 87077; 87086; 87186; 87205; 89051; 90935; 93005; 96361; 96374; 96375; 99285; A9537; G0378; J1815; J2405; J2543; J2805; J3480; J7040

== ENCOUNTER 2017-04-08 20:59 | Emergency (ER) | payer OTHER ==
[~2017-04-08] VITALS: Ht 160 cm; Wt 81.0 kg
[~2017-04-08 20:59] MED LIST changes: -ASPI81TA82 PO; -ATOR20TA PO; +ATOR20TA15 PO; +BRIL90TA PO; +CEFT500T3 PO; -CLON.2 PO; -DOXA1 PO; +DOXA4TAB3 PO; -FLUO10TA PO; -FURO80 PO; +FURO80TA PO; -HYDR12.56 PO; +LACT PO; -LACTCAP7 PO; +LEVO100T5 PO; -LEVO88TA2 PO; +MUPI2%T TOPICAL; +NOVONP2 SQ; +NOVORP2 SQ; -OCUV PO; +SEVEL800 PO; -SODI650T PO; -VITA200017 PO
[2017-04-08 21:30] VITALS: BP 124/56; PULSE 82; RESP 18; O2SAT 99
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
--- NOTE | 2017-04-08 22:26 | RADRPT ---
EXAM DATE/TIME: 04/08/2017 22:06 [facility] COMPARISON: No previous studies available for comparison. INDICATIONS : Patient fell today. Complains of right hip pain. MEDICAL HISTORY : None. SURGICAL HISTORY : Dialysis cath. ENCOUNTER: Initial ACUITY: 1 day PAIN SCORE: 4/10 LOCATION: Right Hip FINDINGS: No acute fracture or dislocation. Bones are osteopenic. Mild osteoarthritis of the hips. Peritoneal d ialysis catheter overlies left lower quadrant. CONCLUSION: 1. No acute bony abnormalities. Rolan Mcmanus MD on April 08, 2017 at 22:24 Board Certified Radiologist. This report was verified electronically.
--- NOTE | 2017-04-08 22:29 | RADRPT ---
EXAM DATE/TIME: 04/08/2017 22:09 [place] Corrected on: April 08, 2017; [facility] COMPARISON: No previous studies available for comparison. INDICATIONS : Patient fell tonight. Complains of right shoulder pain. MEDICAL HISTORY : None. SURGICAL HISTORY : None. ENCOUNTER: Initial ACUITY: 1 day PAIN SCORE: 8/10 LOCATION: Right Shoulder FINDINGS: Two view examination of the right shoulder demonstrates a probable mildly displaced proximal humeral fracture seen on AP view. No dislocation. No fractures seen. CONCLUSION: Findings most characteristic of a relatively nondisplaced proximal humeral fracture. Findings discussed with Dr. Summers. Rolan Mcmanus MD on April 08, 2017 at 22:25 Board Certified Radiologist. This report was verified electronically. Rolan Mcmanus MD on April 08, 2017 at 22:44 Board Certified Radiologist. This report was verified electronically.
--- NOTE | 2017-04-08 22:36 | RADRPT ---
EXAM DATE/TIME: 04/08/2017 22:09 [facility] COMPARISON: No previous studies available for comparison. INDICATIONS : Trauma, fell hit head. RADIATION DOSE: 52.13 CTDIvol (mGy) MEDICAL HISTORY : Cardiovascular disease. Hypertension. dialysis SURGICAL HISTORY : None. ENCOUNTER: Initial ACUITY: 1 day PAIN SCALE: 0/10 LOCATION: cranial TECHNIQUE: Multiple contiguous axial images were obtained of the head. Using automated exposure control and adj ustment of the mA and/or kV according to patient size, radiation dose was kept as low as reasonably a chievable to obtain optimal diagnostic quality images. DICOM format image data is available electro nically for review and comparison. FINDINGS: No intracranial mass, hemorrhage or midline shift. No hydrocephalus. Remote small lacunar infarcts no dale in the cerebellum bilaterally. Small 1 cm erosion noted in the left parietal bone, nonspecific. CONCLUSION: 1. No acute intracranial normality is. Remote small lacunar infarcts in the cerebellum bilaterally. W luis matter ischemic changes. 2. Nonspecific 1 cm erosion through the outer cortex left parietal bone. Rolan Mcmanus MD on April 08, 2017 at 22:30 Board Certified Radiologist. This report was verified electronically.
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
[2017-04-08] MEDS ORDERED: ULTR50TA5 PO (22:55)
[2017-04-08] MEDS ORDERED: ACETAMINOPHEN 500 MG CPLT PO ONE (23:00)
[2017-04-08] MEDS ORDERED: ACETAMINOPHEN/HYDROcodone 325 MG/5 MG TAB PO ONE (23:00)
--- NOTE | 2017-04-08 23:11 | HHI.FF ---
Face to Face Verification Diagnosis: (1) Proximal humeral fracture (2) DM (diabetes mellitus) (3) ESRD on peritoneal dialysis Home Health Nursing Order: Medical education Signs/symptoms of disease process Nursing assessment with vital signs I have seen patient Korina Velásquez on 04/08/17. My clinical findings support the need for the requested home health care services because: Ltd mobility - disease progression High risk of falls I certify that my clinical findings support that this patient is homebound because: Unsteady gait/balance Need for psychosocial assistance Ethan Summers MD Apr 08, 2017 23:11
--- NOTE | 2017-04-08 23:16 | PD ---
Data Data Last Documented VS Vital Signs Date Time Temp Pulse Resp B/P (MAP) Pulse Ox O2 Delivery O2 Flow Rate FiO2 04/08/17 22:53 04/08/17 21:30 82 18 99 Room Air Orders Orders Ct Brain W/O Iv Contrast(Rout) (04/08/17 ) Ct Cerv Spine W/O Contrast (04/08/17 ) Hip, Uni(Ap&Lat) W Ap Pelvis (04/08/17 ) Ice/Cold Pack (04/08/17 21:42) Shoulder, Limited(2vws) (04/08/17 ) Splint Or Brace Apply/Monitor (04/08/17 22:42) Acetamin-Hydrocod 325-5 Mg ([place] 5-325 (04/08/17 23:00) Acetaminophen (Tylenol) (04/08/17 23:00) ^ Home Health (04/08/17 23:08) ^ Home Health (04/08/17 23:09) Case Management Consult (04/08/17 ) MDM Supervised Visit with OLAF: Yes Narrative Course The history, exam, and medical decision-making in the associated mid-level provider note were completed with my assistance. I reviewed and agree with the findings presented. I attest that I had a [id number] encounter with the patient on the same day, and personally performed and documented my assessment and findings in the medical record. *My assessment and Findings: 8 year-old woman, slipped and fallen a carpeted. Multiple medical problems. Probable proximal humerus fracture. Placed in sling. Ambulatory. Normally walks with a cane for long distances. We'll see if we can arrange for home health for her as an outpatient. Diagnosis Primary Impression: Proximal humeral fracture Qualified Codes: S42.294A - Other nondisplaced fracture of upper end of right humerus, initial encounter for closed fracture Additional Impressions: Minor head injury without loss of consciousness Qualified Codes: S09.90XA - Unspecified injury of head, initial encounter Contusion of right hip Qualified Codes: S70.01XA - Contusion of right hip, initial encounter Referrals: Orthopaedic Surgeon Primary Care Physician Patient Instructions: General Instructions, Proximal Humerus Fracture (ED) Departure Forms: Tests/Procedures Additional Instruction: Wear sling for support Ice to the affected area to reduce pain and swelling Follow up with your primary care provider Seek orthopedic evaluation. Call for an appointment as soon as you are able to. Tylenol as directed on the package as needed for pain Return immediately to the ED with acute worsening of symptoms Scripts Tramadol (Ultram) 50 Mg Tab 50 MG PO Q8H Y for PAIN GREATER THAN 5, #20 TAB 0 Refills Prov: Molly Cam FLORESITA 04/08/17 Disposition: 01 DISCHARGE HOME Condition: Stable Ethan Summers MD Apr 08, 2017 23:16
[2017-04-09] MEDS ORDERED: ULTR50TA5 PO (22:17)
== END 2017-04-08 23:25 | disposition home or self-care (01) ==
LOC: NEPD 20:59
DX: S42.294A Other nondisplaced fracture of upper end of right humerus, initial encounter for closed fracture (principal); S70.01XA Contusion of right hip, initial encounter; S09.90XA Unspecified injury of head, initial encounter; I12.0 Hypertensive chronic kidney disease with stage 5 chronic kidney disease or end stage renal disease; E11.22 Type 2 diabetes mellitus with diabetic chronic kidney disease; N18.6 End stage renal disease; Z99.2 Dependence on renal dialysis; Z79.4 Long term (current) use of insulin; Z79.84 Long term (current) use of oral hypoglycemic drugs; W01.0XXA Fall on same level from slipping, tripping and stumbling without subsequent striking against object, initial encounter
CPT/HCPCS: 70450; 72125; 73030; 73502; 99285

== ENCOUNTER 2017-04-09 22:05 | Emergency (ER) | payer OTHER ==
[~2017-04-09] VITALS: Ht 160 cm; Wt 82.0 kg
[~2017-04-09 22:05] MED LIST changes: -BRIL90TA PO; -CEFT500T3 PO; -MUPI2%T TOPICAL; +ULTR50TA5 PO
[2017-04-09 22:12] VITALS: BP 166/74; PULSE 74; RESP 18; TEMP 98.1; O2SAT 100
[2017-04-09] MEDS ORDERED: ULTR50TA5 PO (22:17)
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
[2017-04-09] MEDS ORDERED: MORPHINE SULFATE 4 MG/ML INJ IM ONE (22:30)
[2017-04-10 00:03] VITALS: BP 149/64; PULSE 68; RESP 20; O2SAT 100
[2017-04-10 00:55] VITALS: RESP 18
== END 2017-04-10 00:05 | disposition home or self-care (01) ==
LOC: NEPE 22:05
DX: S42.294D Other nondisplaced fracture of upper end of right humerus, subsequent encounter for fracture with routine healing (principal); E78.00 Pure hypercholesterolemia, unspecified; I12.9 Hypertensive chronic kidney disease with stage 1 through stage 4 chronic kidney disease, or unspecified chronic kidney disease; E11.22 Type 2 diabetes mellitus with diabetic chronic kidney disease; N18.9 Chronic kidney disease, unspecified; E11.40 Type 2 diabetes mellitus with diabetic neuropathy, unspecified; F32.9 Major depressive disorder, single episode, unspecified; W01.0XXD Fall on same level from slipping, tripping and stumbling without subsequent striking against object, subsequent encounter; Z99.2 Dependence on renal dialysis
CPT/HCPCS: 29240; 84132; 96372; 99284; J2270